=== PATIENT | male | born 1955 | race Caucasian/White ===

== ENCOUNTER 2019-03-03 12:05 | Emergency (ER) | payer MEDICARE, BC ==
[~2019-03-03] VITALS: Ht 177.8 cm; Wt 84.1 kg
[~2019-03-03 12:05] MED LIST: ALLERGY RELIEF10 M1 PO; CARDURA4 MG PO; CENTRUM SILVER1 TA1 PO; CHLORTAB-44 MG PO; CITALOPRAM20 MG PO; CRESTOR; CYMBALTA60 M1 PO; DICLOFENAC; DIOVAN HCT 12.51 TAB PO; DIOVAN/HCT 12.51 TA1 PO; DOXAZOCIN; FLOMAX0.4 MG PO; INDOCIN25 MG PO; LEVAQUIN 750MG750 M1 PO; LORATADINE10 MG PO; LORTAB 5/500 501 TAB PO; NIZORAL200 MG PO; NORCO 325 MG-51 TAB PO; PROVENTIL0.09 MG/A1 IH; SAVELLA12.5 MG PO; TRAMADOL; UNABLE; VOLTAREN-XR100 MG PO; XANAX0.25 MG PO; ZOCOR 80MG80 MG PO
[2019-03-03 12:09] VITALS: BP 138/75; TEMP 96.8
[2019-03-03] MEDS ORDERED: FLONASEALLERGY NS (12:32)
[2019-03-03] MEDS ORDERED: MONODOX100 PO ×2 (12:32→12:47)
[2019-03-03 12:54] VITALS: PULSE 62
== END 2019-03-03 12:56 | disposition home or self-care (01) ==
LOC: COL.ER 12:05
DX: J01.90 Acute sinusitis, unspecified (principal); I10 Essential (primary) hypertension; E78.5 Hyperlipidemia, unspecified; F41.9 Anxiety disorder, unspecified; F17.210 Nicotine dependence, cigarettes, uncomplicated; M79.7 Fibromyalgia

== ENCOUNTER 2019-08-04 04:32 | Inpatient (IN) | payer MEDICARE, BC ==
[~2019-08-04] VITALS: Ht 177.8 cm; Wt 78.8 kg
[~2019-08-04 04:32] MED LIST changes: +FLONASEALLERGY NS; +MONODOX100 PO
[2019-08-04 05:12] LABS: BASO # 0.1 (0.0-0.2); BASO % 0.4 % (0.0-2.0); EOS % 0.2 % (0-4.0); GRAN # 10.1 (1.4-6.5); GRAN % 81.3 % (42.2-75.2); HEMATOCRIT 39.7 % (42.0-52.0); HEMOGLOBIN 13.1 g/dl (13.5-18.0); LYMPH # 1.4 (1.2-3.4); MEAN CELL VOLUME 86 fl (80.0-100.0); MEAN CORPUSCULAR HEMOGLOBIN 28 pg (27.0-31.0); MEAN CORPUSCULAR HGB CONC 33 g/dl (33.0-37.0); MEAN PLATELET VOLUME 9.9 fl (7.4-10.4); MONO # 0.8 (0.1-0.6); MONO % 6.7 % (1.7-9.3); PLATELET COUNT 594 K/mm3 (130-400); RED BLOOD COUNT 4.64 M/mm3 (4.20-5.60); REDCELL DISTRIBUTION WIDTH-CV 13.5 % (11.5-14.5)
[2019-08-04 05:20] LABS: ALBUMIN 3.9 gm/dL (3.5-5.0); BILIRUBIN,TOTAL 0.4 mg/dL (0.0-1.0); CREATININE, serum 1.61 (0.66-1.25); POTASSIUM 4.5 mmol/L (3.4-5.0); TOTAL PROTEIN 7.7 gm/dL (6.4-8.2)
[2019-08-04 06:06] LABS: TROPONIN-I < 0.012 ng/mL (0.000-0.035)
[2019-08-04 07:43] LABS: PERITONEAL -POLYMORPHONUCLEAR 14.2 % (0-25); PERITONEAL FLUID RBC 2000 /mm3 (0-0)
[2019-08-04 09:31] VITALS: BP 130/76; PULSE 74; TEMP 97.6
[2019-08-04] MEDS ORDERED: FLOMAX 0.40.4 MG/CAP PO (10:38)
[2019-08-04] MEDS ORDERED: PRINIVIL20 MG PO (10:39)
[2019-08-04] MEDS ORDERED: CLARITIN 1010 MG/TAB PO (10:39)
[2019-08-04] MEDS ORDERED: XANAX 1MG1 MG PO (10:41)
[2019-08-04] MEDS ORDERED: ZANAFLEX2 MG PO (10:43)
[2019-08-04] MEDS ORDERED: LIPITOR20 MG PO (10:43)
[2019-08-04] MEDS ORDERED: PAXIL 20MG20 MG PO (10:45)
[2019-08-04] MEDS ORDERED: ULTRAM 50MG TAB50 MG PO (10:47)
[2019-08-04] MEDS ORDERED: FLONASEALLERGY NS (10:47)
[2019-08-04] MEDS ORDERED: DIFLUCAN150 MG PO (10:49)
[2019-08-04 11:26] VITALS: BP 112/78; PULSE 73; TEMP 98.1
[2019-08-04 11:30] VITALS: BP 112/78; PULSE 73; TEMP 98.1
[2019-08-04 12:39] LABS: MUCOUS Present /lpf; PH 5 (5-8); SQUAMOUS EPITHELIAL None Seen /hpf; URINE APPEARANCE Clear; URINE BACTERIA None Seen /hpf; URINE BILIRUBIN Negative (NEGATIVE); URINE BLOOD Negative (NEGATIVE); URINE COLOR Yellow; URINE GLUCOSE 1+ (NEGATIVE); URINE KETONE Trace (NEGATIVE); URINE LEUKOCYTE ESTERASE Negative (NEGATIVE); URINE NITRATE Negative (NEGATIVE); URINE PROTEIN(semi-quant) Negative (NEGATIVE); URINE UROBILINOGEN Negative (NEGATIVE); URINE WBC 0-2 /hpf
[2019-08-04 14:44] LABS: COLLECTION METHOD CLEAN CATCH
--- NOTE | 2019-08-04 15:01 | NUR ---
SW met with the patient to discuss a disharge plan. The patient lives with his dog in [place]. Patient states he moved back here June 06. The patient denies use of DME and reports he has not been strong enough to shower the past two days. The patient's PCP is Dr. Harry Che from [facility] and patient receives medications from [facility]. The patient does has advanced directives in the EMR in form of a declaration. The patient was interested in a DPOA-HC. SW provided the form, patient's nurse and SW witnessed. A copy was placed in the chart and the original and copies were given to the patient. The patient plans to return home upon discharge. There are no additional needs at this time.
[2019-08-04 16:01] LABS: IRON,SERUM 36 ug/dL (35-150)
[2019-08-04 16:10] LABS: TOTAL IRON BINDING CAPACITY 247 ug/dL (261-462)
[2019-08-04 16:27] VITALS: BP 128/93; PULSE 89; TEMP 97.8
[2019-08-04 20:00] VITALS: BP 135/83; PULSE 88; TEMP 98
[2019-08-04 22:34] LABS: HEPATITIS B CORE AB,TOTAL Negative (()); HEPATITIS B SURFACE ANTIBODY <2.0 (()); HEPATITIS B SURFACE ANTIGEN Negative (Negative); HEPATITIS C VIRUS ANTIBODY Negative (Negative)
[2019-08-04 23:29] VITALS: BP 117/79; PULSE 84; TEMP 98
--- NOTE | 2019-08-05 02:47 | NUR ---
PATIENT DOING WELL THROUGHOUT THE NIGHT. WAS HAVING MODERATE PAIN ALL NIGHT. PRN ULTRAM CHANGED TO Q6 HOURS PER HAROON TRISTAN. PAIN IS LOCATED TO BACK AND HEAD. TOOK PRN XANAX BEFORE BED. PATIENT WAS HAVING DIFFICULTY SLEEPING AND WAS UNCOMFORTABLE IN THE BED. UP TO CHAIR. PATIENT TOOK INDEPENDENT SHOWER WITH SETUP BY ENGLISH FACULTY MEMBER. AGUILAR OUTPUT IS LOW. ABD IS DISTENDED AND FIRM. INT TO L HAND IS PATENT AND FLUSHES EASILY. SEE ASSESSMENT. NO FURTHER NEEDS AT THIS TIME. WILL CONTINUE TO MONITOR.
[2019-08-05 03:33] VITALS: BP 98/59; PULSE 85; TEMP 97.8
[2019-08-05 06:17] LABS: BASO # 0.1 (0.0-0.2); BASO % 0.6 % (0.0-2.0); EOS # 0.1 (0.0-0.7); EOS % 0.6 % (0-4.0); GRAN # 8.1 (1.4-6.5); HEMOGLOBIN 11.2 g/dl (13.5-18.0); LYMPH # 1.6 (1.2-3.4); LYMPH % 15.2 % (20.0-51.0); MEAN CELL VOLUME 86 fl (80.0-100.0); MEAN CORPUSCULAR HEMOGLOBIN 28 pg (27.0-31.0); MEAN CORPUSCULAR HGB CONC 33 g/dl (33.0-37.0); MONO # 0.9 (0.1-0.6); MONO % 8.3 % (1.7-9.3); RED BLOOD COUNT 3.98 M/mm3 (4.20-5.60); REDCELL DISTRIBUTION WIDTH-CV 13.5 % (11.5-14.5)
[2019-08-05 06:21] LABS: HEMATOCRIT 34.3 % (42.0-52.0)
[2019-08-05 06:22] LABS: PLATELET COUNT 461 K/mm3 (130-400)
[2019-08-05 06:39] LABS: ALBUMIN 3.3 gm/dL (3.5-5.0); BILIRUBIN,TOTAL 0.3 mg/dL (0.0-1.0); CALCIUM 9.1 mg/dL (8.4-10.2); CREATININE, serum 1.8 (0.66-1.25); POTASSIUM 4.9 mmol/L (3.4-5.0); TOTAL PROTEIN 6.6 gm/dL (6.4-8.2)
[2019-08-05 08:17] VITALS: BP 128/85; PULSE 79; TEMP 97.5
--- NOTE | 2019-08-05 08:26 | NUR ---
Assessment completed, alert/oriented, vital signs stable, patient reports continue severe pain in his abd/back/ and cardenas cath related discomfort, he has requested his Ultram and I have given this, abdomen is rounded and firm, abd US roxanna this morning, cardenas in place and patent/ creat up slighlty today at 1.8, heart RRR/distal pulses are palpable, lungs CTA/ no resp.difficulty noted, up in chair at this time, a.m meds given and breakfast is arriving, denies other needs
[2019-08-05 11:46] VITALS: BP 134/74; PULSE 77; TEMP 97.3
[2019-08-05 11:48] LABS: INR 1.1 (0.8-3.0); PROTHROMBIN TIME 12.5 SECONDS (9.7-12.8)
--- NOTE | 2019-08-05 13:15 | NUR ---
patient is going down to radiology for US guided paracentesis
[2019-08-05 16:25] VITALS: BP 131/81; PULSE 75; TEMP 97.7
[2019-08-05 19:49] VITALS: BP 122/78; PULSE 79; TEMP 97.7
--- NOTE | 2019-08-05 20:30 | NUR ---
Shift assessment completet. Pt resting in bedside recliner, awake, a&o, cooperative c cares. Pt c/o continued abd pain, rated "6/10"; will give PRN pain/anxiety meds per pt request. Pt denies any other c/o. INT patent. Miguel to DD s complication. Pt denies needs. Call light in reach, will continue to monitor.
[2019-08-05 23:24] VITALS: BP 114/66; PULSE 74
[2019-08-06] VITALS (7 sets, daily range): BP systolic 99–120; BP diastolic 53–73; PULSE 64–88; TEMP 97.3–98.5
[2019-08-06 00:31] LABS: HEPATITIS AB (HAV) IGG INDEX 1.09 Index (<=1.00)
[2019-08-06 06:36] LABS: BASO # 0.1 (0.0-0.2); BASO % 0.8 % (0.0-2.0); EOS # 0.2 (0.0-0.7); EOS % 2.4 % (0-4.0); GRAN # 6.9 (1.4-6.5); GRAN % 69.9 % (42.2-75.2); HEMOGLOBIN 10.5 g/dl (13.5-18.0); LYMPH # 1.6 (1.2-3.4); LYMPH % 15.9 % (20.0-51.0); MEAN CELL VOLUME 86 fl (80.0-100.0); MEAN CORPUSCULAR HEMOGLOBIN 29 pg (27.0-31.0); MEAN CORPUSCULAR HGB CONC 33 g/dl (33.0-37.0); MEAN PLATELET VOLUME 10.2 fl (7.4-10.4); MONO # 1.1 (0.1-0.6); MONO % 10.7 % (1.7-9.3); PLATELET COUNT 460 K/mm3 (130-400); RED BLOOD COUNT 3.67 M/mm3 (4.20-5.60); REDCELL DISTRIBUTION WIDTH-CV 13.5 % (11.5-14.5)
[2019-08-06 07:04] LABS: HEMATOCRIT 31.5 % (42.0-52.0)
[2019-08-06 07:08] LABS: ALBUMIN 3.2 gm/dL (3.5-5.0); BILIRUBIN,TOTAL 0.3 mg/dL (0.0-1.0); CALCIUM 8.9 mg/dL (8.4-10.2); CREATININE, serum 1.51 (0.66-1.25); POTASSIUM 4.4 mmol/L (3.4-5.0)
--- NOTE | 2019-08-06 08:29 | NUR ---
patient going down for EGD at this time
--- NOTE | 2019-08-06 10:01 | NUR ---
Assessment completed, alert/oriented but drowsy, patient just arrived back from his EGD, denies any pain or dsicomfort, vital signs are stable, will restart diet and allow PO intake, heart RRR, lungs CTA, abdomen is softer today and he report feeling much better after having paracentesis yesterday, resting quietly, will continue to monitor
--- NOTE | 2019-08-06 12:16 | NUR ---
First visit from the retail worker. Patient wanted to see a tin container straightener. Forming Process Line Worker called tin container straightener and set up appointment. No other needs right now.
--- NOTE | 2019-08-06 15:02 | NUR ---
BROWN met with the patient to discuss getting established with a PCP in [place]. The patient was in agreeance to this. BROWN provided the patient with a list of the different providers in [place]. The patient chose the [facility]. BROWN contacted Ira at the [facility] and secured the patient an appointment with Dr. Demetris Gore on 08/15 at 1000. BROWN to inform the nurse unit manager and MINNIE Barclay. No other additional needs at this time.
[2019-08-06 15:36] LABS: ANTISMOOTH MUSCLE ANTIBODY Negative (Negative)
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
--- NOTE | 2019-08-06 23:30 | NUR ---
Lying in bed with eyes open. Explains that he was able to have a small BM that was hard and says he is concerned he may be getting constipated. Patient says that in the past grape juice has helped and asks if he can get grape juice. Patient then begins to explain concerns he has with his health and getting better with his liver the way it is right now. Encouraged patient to discuss these concerns with the provider when they come in tomorrow to see him so they are aware and can make a determination on discharge. Patient discusses some incidents in his past that have occurred that he is sorry for and hopes that he can be forgiven by God for them. Patient also requests refill on water and also a diet Coke.
[2019-08-07] VITALS (7 sets, daily range): BP systolic 106–148; BP diastolic 66–80; PULSE 77–98; TEMP 97.4–98.5
--- NOTE | 2019-08-07 | NUR ---
Provided patient with water and diet coke. Patient says that he would like the providers to know that due to emotional issues that he had in the past and also pain that was never addressed, these are reasons that he turned to alcohol and drank the way he drank. Patient discusses concerns with care he received from providers in the past along with hospitalizations. Patient explains that he has always had a lot of depression and anxiety since his brother was killed when he was 12. Asked if he ever went to counseling for this and he said when the incident initially happened his family rona him to be quiet and it was never discussed. Received counseling in his 30's but never went back. Encouraged patient to reseek care with a counselor. Patient becomes a little emotional and explains that he feels like everyone hates him but they do not understand what he has been through to get to the position that he is in. Explain to he patient that is sounds like he has gone through a tough time and it would be very beneficial to him to seek care with a counselor just to be able to gt these feelings out on a routine basis and they can help him to come up with coping mechanisms. Patient verbalizes understanding and denies further needs at this time.
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
[2019-08-07 01:24] LABS: CERULOPLASMIN 33 mg/dL (18-36)
--- NOTE | 2019-08-07 05:49 | NUR ---
Patient up in room performing oral hygiene and shaving. Denies pain or concerns. Says that he feels better that he was able to vent through the night to someone. Patient denies further needs at this time.
[2019-08-07 06:45] LABS: BASO # 0.1 (0.0-0.2); BASO % 0.9 % (0.0-2.0); EOS # 0.2 (0.0-0.7); GRAN # 7.2 (1.4-6.5); GRAN % 61.8 % (42.2-75.2); HEMOGLOBIN 11.6 g/dl (13.5-18.0); LYMPH # 2.8 (1.2-3.4); MEAN CELL VOLUME 86 fl (80.0-100.0); MEAN CORPUSCULAR HEMOGLOBIN 28 pg (27.0-31.0); MEAN CORPUSCULAR HGB CONC 33 g/dl (33.0-37.0); MEAN PLATELET VOLUME 10.4 fl (7.4-10.4); MONO # 1.3 (0.1-0.6); PLATELET COUNT 505 K/mm3 (130-400); RED BLOOD COUNT 4.08 M/mm3 (4.20-5.60); REDCELL DISTRIBUTION WIDTH-CV 13.5 % (11.5-14.5)
[2019-08-07 06:53] LABS: HEMATOCRIT 35.2 % (42.0-52.0)
[2019-08-07 07:02] LABS: CALCIUM 9.2 mg/dL (8.4-10.2); CREATININE, serum 1.82 (0.66-1.25)
--- NOTE | 2019-08-07 09:59 | NUR ---
BROWN attended clinical rounds. The patient is to tentatively discharge back home later today, 08/07. SW presented and explained the IM form the patient. The patient verbalized understanding, signed, and he declined a copy. No additional needs at this time.
--- NOTE | 2019-08-07 11:08 | NUR ---
Pt awake and alert upon entry, very talkative, shift assessment complete, left Pt call light in reach, bed in lowest position.
[2019-08-07 11:22] LABS: ALPHA 1 ANTITRYPSIN TOTAL 272.2 mg/dL (())
--- NOTE | 2019-08-07 14:13 | NUR ---
Primary nurse was assisted with [id number] patient care by [employer] [facility] Va Boyd and [employer] instructor Hemalatha Eden RN-.
--- NOTE | 2019-08-07 19:30 | NUR ---
Pt resting in room today, expresses desire to have Nicholson catheter removed, VS have remained stable.
--- NOTE | 2019-08-07 19:31 | NUR ---
Report given to YECENIA Mahoney.
--- NOTE | 2019-08-07 21:35 | NUR ---
Lying in bed with eyes open. Patient explains they wanted to send him home today but he is not comfortable with going home with the catheter. Explains that today he was shown how to clean the catheter but is concerned with emptying and carrying around a large bag because he has to leave his house to do laundry. Explain to the patient that we do have leg bags available that we would be able to show him how to use this way it can be worn under his clothing. Patient says that he is too concerned with how often he would need to check the leg bag. Explain that he can discuss these concerns with the provider further before a decision is made and explain that if he is discharged the staff will make sure that he knows how to care for his catheter. Patient says that he is feeling better today and overall has had a good day. Denies pain or any further concerns at this time.
--- NOTE | 2019-08-07 23:41 | NUR ---
Lying in bed with eyes open. Denies pain or any concerns at this time. Will try to get some sleep at this time.
[2019-08-08 03:43] VITALS: BP 117/72; PULSE 77; TEMP 97.9
--- NOTE | 2019-08-08 03:52 | NUR ---
Lying in bed with eyes open. Patient says that he is feeling good. Has some abd discomfort because he feels a little constipated. Will try to drink more water to see if that will help. Denies further needs or concerns at this time.
--- NOTE | 2019-08-08 06:33 | NUR ---
Sitting up in chair. Explains that he feels good but is concerned he may be getting constipated. Patient says that he does not want medication for constipation, he knows that he will eventually go. Denies further needs at this time.
[2019-08-08 07:59] VITALS: BP 130/89; PULSE 81; TEMP 97.4
[2019-08-08 08:36] LABS: BASO # 0.1 (0.0-0.2); BASO % 0.8 % (0.0-2.0); EOS # 0.3 (0.0-0.7); EOS % 2.7 % (0-4.0); GRAN # 7.7 (1.4-6.5); GRAN % 72.6 % (42.2-75.2); HEMOGLOBIN 11.5 g/dl (13.5-18.0); LYMPH # 1.5 (1.2-3.4); MEAN CELL VOLUME 87 fl (80.0-100.0); MEAN CORPUSCULAR HEMOGLOBIN 28 pg (27.0-31.0); MEAN CORPUSCULAR HGB CONC 33 g/dl (33.0-37.0); MONO % 9.5 % (1.7-9.3); PLATELET COUNT 512 K/mm3 (130-400); RED BLOOD COUNT 4.07 M/mm3 (4.20-5.60); REDCELL DISTRIBUTION WIDTH-CV 13.4 % (11.5-14.5)
[2019-08-08 08:37] LABS: HEMATOCRIT 35.2 % (42.0-52.0)
[2019-08-08 09:02] LABS: ALBUMIN 3.7 gm/dL (3.5-5.0); BILIRUBIN,TOTAL 0.3 mg/dL (0.0-1.0); CREATININE, serum 1.66 (0.66-1.25); POTASSIUM 4.3 mmol/L (3.4-5.0); TOTAL PROTEIN 7.1 gm/dL (6.4-8.2)
[2019-08-08] MEDS ORDERED: PROTONIX 40MG T40 MG PO (09:17)
[2019-08-08] MEDS ORDERED: LASIX 20MG TABL20 MG PO (09:18)
[2019-08-08] MEDS ORDERED: ALDACTONE50 MG PO (09:18)
[2019-08-08] MEDS ORDERED: NICODERM C21 MG/PATC TD (09:43)
--- NOTE | 2019-08-08 11:00 | NUR ---
Pt assessment completed and charted. Pt sitting in recliner at bedside. Pt is A&O, scattered conversation, very chatty. Denies pain, chest pain, dizziness, SOB, N/V. States he has some constipation but refuses medication at this time. LH INT IV flushes w. no complications. pt has bandaid to right side abdomen, CDI. Nicholson catheter in place, draining clear yellow urine, catheter care performed. No other concerns voiced at this time.
[2019-08-08 11:43] VITALS: BP 152/82; PULSE 77; TEMP 97.5
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
--- NOTE | 2019-08-08 16:57 | NUR ---
Pt assisted back to bed by nursing staff. Pt received 2MG Haldol per order in DEC. Pt out of bed walking down dia. Nursing staff intervened, assisted patient to WC and back to room. Pt doesn't respond to questions. Pt has Brokoe valente aide. Pt attempted to get out of bed, walk halls. Pt blank stares, doesn't respond to questions, then body stiffens up. Pt finally assisted to WC and back to bed. magdaleno Cox and this nurse have remained in room w/ patient in bed. Pt attempting to remove IV. Coban and christina wrap placed around IV site. Pt will sit up in bed, fidget with clothing and buttons on bed and then lay back down. Pt doesn't talk or respond to questions.
--- NOTE | 2019-08-08 17:18 | NUR ---
This nurse and darbyeBrooke have remained at patient bedside. Pt now using phone talking to family member. Pt stating "I'm not sure what is going on here." Pt talking in full, clear sentences. Pt stating to family member on phone that he "doesn't understand why he can't leave, it's confusing". "it is trickery" pt reports on phone. Pt conversation becoming scattered, repeating the word "trickery" and "i love you" to family member. Pt doesn't respond to nursing staff questions.
--- NOTE | 2019-08-08 17:35 | NUR ---
Pt awake in bed, alert, talking in full clear sentences to staff. Requesting to talk w/ physician and wanting to know what happened and if he "blacked out". Sade contacted, will visit with patient.
--- NOTE | 2019-08-08 18:20 | NUR ---
Pt seen by Sade and to remain on Medical floor. Will not transfer to ICU. Pt more alert, denies remembering what happened during event this afternoon. Pt VSS. New IV started by YECENIA Macario, 22G to the [facility].
--- NOTE | 2019-08-08 18:55 | NUR ---
Pt moved to room 355 for closer monitoring by nursing station. Pt appears to be doing ok at this time. Denies needs at this time. Sitting in bed eating dinner, tolerating well.
[2019-08-08 20:02] VITALS: BP 105/70; PULSE 83; TEMP 97.6
--- NOTE | 2019-08-08 20:30 | NUR ---
Pt is laying in bed in a catatonic state. When spoken to pt does not look at the person speaking, he did become emotional and was weepy eyed. Vital signs are WNL. Assessment completed, no abnormalities. Bed alarm on, phone and call light within reach. No further concerns at this time.
[2019-08-08 23:33] VITALS: BP 102/67; PULSE 81; TEMP 97.5
--- NOTE | 2019-08-09 01:03 | NUR ---
Pt just woke up and wanted to talk. Pt began to talk about his family life as a child. Appeared to have some repressed memories regarding his brother who on his parents anniversary when the pt was 12. Pt stated "I want to apologize for my behavior, it was because I was scared and confused." Pt is very emotional and said that he was sorry for not answering, he just didn't know what to say because of the confusion. Pt is grateful for the kindness and compassion even with his behavior. I informed him that someone will be coming by tomorrow to talk with him and give him the opportunity to talk as well, Pt is receptive. Pt asked for pain medication, but is unable to describe the pain. Administered medication from 2100 at this time as well. Pt laying in bed and ready to sleep. Call light and phone within reach, bed alarm on. No further concern at this time.
[2019-08-09 03:46] VITALS: BP 110/69; PULSE 78; TEMP 98.1
[2019-08-09 07:32] LABS: BASO # 0.1 (0.0-0.2); BASO % 0.6 % (0.0-2.0); EOS # 0.2 (0.0-0.7); EOS % 1.7 % (0-4.0); GRAN # 7.1 (1.4-6.5); HEMOGLOBIN 10.8 g/dl (13.5-18.0); LYMPH # 2.1 (1.2-3.4); LYMPH % 19.6 % (20.0-51.0); MEAN CELL VOLUME 84 fl (80.0-100.0); MEAN CORPUSCULAR HEMOGLOBIN 28 pg (27.0-31.0); MEAN CORPUSCULAR HGB CONC 33 g/dl (33.0-37.0); MEAN PLATELET VOLUME 9.8 fl (7.4-10.4); MONO % 9.9 % (1.7-9.3); PLATELET COUNT 509 K/mm3 (130-400); RED BLOOD COUNT 3.86 M/mm3 (4.20-5.60); REDCELL DISTRIBUTION WIDTH-CV 13.3 % (11.5-14.5)
[2019-08-09 07:33] LABS: HEMATOCRIT 32.4 % (42.0-52.0)
--- NOTE | 2019-08-09 07:59 | NUR ---
Report given to YECENIA Macario. Pt handoff complete. Pt reports anxiety of which some is regarding acquiring a cashiers check to pay his rent. Pt is ready and accepting of talking with whomever is coming for the psych consult today. No further conerns at this time.
[2019-08-09 08:00] LABS: CALCIUM 9.1 mg/dL (8.4-10.2); CREATININE, serum 1.48 (0.66-1.25); POTASSIUM 4.5 mmol/L (3.4-5.0)
[2019-08-09 08:16] VITALS: BP 116/73; PULSE 72; TEMP 97.7
[2019-08-09] MEDS ORDERED: PAXIL40 MG PO (10:53)
[2019-08-09] MEDS ORDERED: RISPERDAL 1M1 MG/TAB PO (10:53)
[2019-08-09 11:55] VITALS: PULSE 79; TEMP 97.7
[2019-08-09] MEDS ORDERED: ROXICODONE 55 MG/TAB PO (12:04)
--- NOTE | 2019-08-09 12:07 | NUR ---
BROWN met with the patient to review discharge plan and to discuss home health services. Dr. Abraham, psychiatrist, met with the patient today and recommend follow up at [place]. The patient reports that he feels safe and comfortable returning back home and would be interested in home health. BROWN provided the patient with [employer]'s list of home health agencies that serve [place]. The patient chose [facility]. BROWN contacted and faxed a referral to [facility]. BROWN awaiting to here back from the it systems administrator. The patient is to tentatively discharge tomorrow, 08/10. BROWN presented and explained the IM form to the patient. The patient verbalized understanding, signed, and he was provided a copy. BROWN also provided the patient with meals on wheels phone number and a list of [facility]. BROWN to continue to follow.
--- NOTE | 2019-08-09 13:54 | NUR ---
Marii, at [facility], reports that they can accept the patient and they they can start services on Sunday. SW to inform the patient and will continue to follow.
[2019-08-09 17:44] VITALS: BP 127/98; PULSE 93; TEMP 97.5
[2019-08-09 19:21] VITALS: BP 106/69; PULSE 98; TEMP 98.2
--- NOTE | 2019-08-09 21:00 | NUR ---
Pt requested to take a shower. magdaleno Eckert to wrap up the IV site. Will check on pt periodically while in shower.
[2019-08-09 23:29] VITALS: BP 112/68; PULSE 88; TEMP 97.6
[2019-08-10 03:36] VITALS: BP 111/74; PULSE 85; TEMP 98.1
--- NOTE | 2019-08-10 04:00 | NUR ---
Pt laying in bed sleeping. No concerns at this time.
--- NOTE | 2019-08-10 07:15 | NUR ---
Report given to YECENIA Ladd. Pt anticipates discharge today. Remained through the night to observe medication changes. No concerns. Pt slept well throughout the night. No further concerns at this time.
[2019-08-10 07:50] VITALS: BP 124/83; PULSE 84; TEMP 97.6
[2019-08-10 09:01] LABS: BASO # 0.1 (0.0-0.2); BASO % 0.8 % (0.0-2.0); EOS # 0.2 (0.0-0.7); EOS % 1.5 % (0-4.0); GRAN # 8.9 (1.4-6.5); GRAN % 71.3 % (42.2-75.2); HEMATOCRIT 37.4 % (42.0-52.0); HEMOGLOBIN 12.6 g/dl (13.5-18.0); LYMPH # 2.1 (1.2-3.4); LYMPH % 16.4 % (20.0-51.0); MEAN CELL VOLUME 84 fl (80.0-100.0); MEAN CORPUSCULAR HEMOGLOBIN 28 pg (27.0-31.0); MEAN CORPUSCULAR HGB CONC 34 g/dl (33.0-37.0); MEAN PLATELET VOLUME 9.9 fl (7.4-10.4); MONO # 1.2 (0.1-0.6); MONO % 9.5 % (1.7-9.3); PLATELET COUNT 578 K/mm3 (130-400); RED BLOOD COUNT 4.45 M/mm3 (4.20-5.60); REDCELL DISTRIBUTION WIDTH-CV 13.3 % (11.5-14.5)
[2019-08-10 09:12] LABS: ALBUMIN 3.8 gm/dL (3.5-5.0); BILIRUBIN,TOTAL 0.4 mg/dL (0.0-1.0); CALCIUM 9.6 mg/dL (8.4-10.2); CREATININE, serum 1.79 (0.66-1.25); POTASSIUM 4.7 mmol/L (3.4-5.0); TOTAL PROTEIN 7.4 gm/dL (6.4-8.2)
--- NOTE | 2019-08-10 09:40 | NUR ---
Patient has been independent in room. Denies the need for pain medication, concerns for constipation with roxicodone. He is hopeful for discharge.
[2019-08-10 11:21] VITALS: BP 121/76; PULSE 97; TEMP 97.6
--- NOTE | 2019-08-10 11:24 | NUR ---
general scrap worker faxed discharge orders including facesheet, orders, medications, and physician [id number] certification to [facility] at [phone].
[2019-08-10] MEDS ORDERED: ALDACTONE 25MG25 M1 PO (12:04)
--- NOTE | 2019-08-10 16:00 | NUR ---
Patient finished lunch at 1430. Patient was ready for discharge paperwork. Extensive discharge paperwork provided. Patient started feeling overwhelmed & anxious with discharge & even started getting aggitated. I attempted to give leg bag teaching, but patient had concerns, so we kept cardenas to large bag & reviewed care for tonight & tmrw am prior to urology appt at 0930. Tried to make this teaching as easy as possible for patient. I then reiwewed home med list, last dose given, medications that were stopped, new medications started & dose changed. Patient again having concerns, I provided medication list with colored coded highlighting for am medication, pm medications, & prns. Patient to scrap picker new scripts at [email or web address]. Once again tried to make this education as easy to understand as possible for patient. all follow up appts reviewed with a monthly calander with phone numbers & addresses. Patient again feeling overwhelmed. At this point I called Elan Mirza about concerns & safety. She saw patient & provded comfort. Called Dr Osman she reports patient not a fit for inpatient geripsych. wire rope fabrication supervisor involved & assisted with ear drops that were ordered-patient reports they really really helped & he was feeling ready for discharge & house supervisoer walked him out. Patient son Sushil was updated on patient concerns & entire plan of care including appts, meds, cardenas. Son report he will check in on his father this evening & AM. Social work also called & they assured me home health will see patient in & assist with cares
[2019-08-10 17:09] VITALS: BP 119/66; PULSE 80; TEMP 97.7
== END 2019-08-10 16:00 | disposition home health service (06) | DRG 432 ==
LOC: COL.ER 04:32 → MEDICAL 07:28
PROVIDERS: Emergency Medicine; Internal Medicine Gastroenterology; Physician Assistant; Student in an Organized Health Care Education/Training Program; ADMIT Internal Medicine
PROC: 0W9G3ZZ Drainage of Peritoneal Cavity, Percutaneous Approach (ICD-10-PCS; principal; 2019-08-04)
PROC: 0W9G3ZZ Drainage of Peritoneal Cavity, Percutaneous Approach (ICD-10-PCS; 2019-08-05)
PROC: 0DB68ZX Excision of Stomach, Via Natural or Artificial Opening Endoscopic, Diagnostic (ICD-10-PCS; 2019-08-06)
DX: K74.60 Unspecified cirrhosis of liver (principal); E43 Unspecified severe protein-calorie malnutrition; R18.8 Other ascites; K76.6 Portal hypertension; E87.2 Acidosis; N17.9 Acute kidney failure, unspecified; F20.2 Catatonic schizophrenia; F33.1 Major depressive disorder, recurrent, moderate; E87.1 Hypo-osmolality and hyponatremia; F17.210 Nicotine dependence, cigarettes, uncomplicated; N40.1 Benign prostatic hyperplasia with lower urinary tract symptoms; R33.8 Other retention of urine; G89.29 Other chronic pain; I71.4 Abdominal aortic aneurysm, without rupture; D47.3 Essential (hemorrhagic) thrombocythemia; K21.0 Gastro-esophageal reflux disease with esophagitis; K29.30 Chronic superficial gastritis without bleeding; L40.9 Psoriasis, unspecified; I12.9 Hypertensive chronic kidney disease with stage 1 through stage 4 chronic kidney disease, or unspecified chronic kidney disease; N18.9 Chronic kidney disease, unspecified; E78.5 Hyperlipidemia, unspecified; M79.7 Fibromyalgia; B35.1 Tinea unguium; M19.90 Unspecified osteoarthritis, unspecified site; J44.9 Chronic obstructive pulmonary disease, unspecified; D72.829 Elevated white blood cell count, unspecified; F41.1 Generalized anxiety disorder; Z88.0 Allergy status to penicillin; Z79.51 Long term (current) use of inhaled steroids
CPT/HCPCS: 99222-AI; 99232-AI; 99233-AI; 99239; A4216; C9113; J0696; J1630; J2405; J2704; J3010; J7030; P9047

== ENCOUNTER → 2019-08-15 | Outpatient (CLI) | payer MEDICARE, BC ==
[~2019-08-15] MED LIST changes: +ALDACTONE 25MG25 M1 PO; +ALDACTONE50 MG PO; +CLARITIN 1010 MG/TAB PO; +DIFLUCAN150 MG PO; +FLOMAX 0.40.4 MG/CAP PO; +LASIX 20MG TABL20 MG PO; +LIPITOR20 MG PO; +NICODERM C21 MG/PATC TD; +PAXIL 20MG20 MG PO; +PAXIL40 MG PO; +PRINIVIL20 MG PO; +PROTONIX 40MG T40 MG PO; +RISPERDAL 1M1 MG/TAB PO; +ROXICODONE 55 MG/TAB PO; +ULTRAM 50MG TAB50 MG PO; +XANAX 1MG1 MG PO; +ZANAFLEX2 MG PO
[2019-08-15 17:16] LABS: CALCIUM 8.9 mg/dL (8.4-10.2); CREATININE, serum 1.76 (0.66-1.25); POTASSIUM 4.3 mmol/L (3.4-5.0)
== END ==
LOC: ZCOL.LAB 16:32
PROVIDERS: Family Medicine
DX: K74.60 Unspecified cirrhosis of liver (principal)

== ENCOUNTER → 2019-09-19 | Outpatient (CLI) | payer MEDICARE, BC ==
[~2019-09-19] VITALS: Ht 177.8 cm; Wt 82.6 kg
[~2019-09-19] MED LIST changes: +XANAX 0.5MG0.5 MG PO
[2019-09-19 11:52] VITALS: BP 123/83; PULSE 83
[2019-09-19 13:10] VITALS: BP 157/96; PULSE 63
== END ==
LOC: COL.RAD 11:25
DX: R18.8 Other ascites (principal)

== ENCOUNTER 2019-10-16 09:06 | Emergency (ER) | payer MEDICARE, BC ==
[~2019-10-16] VITALS: Ht 177.8 cm; Wt 81.5 kg
[2019-10-16 09:47] LABS: BASO # 0.1 (0.0-0.2); BASO % 0.9 % (0.0-2.0); EOS # 0.2 (0.0-0.7); EOS % 2.1 % (0-4.0); GRAN # 7.1 (1.4-6.5); GRAN % 70.1 % (42.2-75.2); HEMATOCRIT 38.2 % (42.0-52.0); HEMOGLOBIN 12.4 g/dl (13.5-18.0); LYMPH # 1.9 (1.2-3.4); LYMPH % 19.1 % (20.0-51.0); MEAN CELL VOLUME 86 fl (80.0-100.0); MEAN CORPUSCULAR HEMOGLOBIN 28 pg (27.0-31.0); MEAN CORPUSCULAR HGB CONC 33 g/dl (33.0-37.0); MEAN PLATELET VOLUME 9.4 fl (7.4-10.4); MONO # 0.8 (0.1-0.6); MONO % 7.4 % (1.7-9.3); PLATELET COUNT 501 K/mm3 (130-400); RED BLOOD COUNT 4.43 M/mm3 (4.20-5.60); REDCELL DISTRIBUTION WIDTH-CV 15.1 % (11.5-14.5)
[2019-10-16 09:52] LABS: INR 0.9 (0.8-3.0); PROTHROMBIN TIME 10.8 SECONDS (9.7-12.8)
[2019-10-16 09:58] LABS: ALANINE AMINOTRANSFERASE < 6 U/L (21-72); ALBUMIN 3.8 gm/dL (3.5-5.0); ALKALINE PHOSPHATASE 101 U/L (50-136); ANION GAP 10 mmol/L (7-16); AST,SGOT 21 U/L (15-37); BILIRUBIN,TOTAL 0.4 mg/dL (0.0-1.0); BLOOD UREA NITROGEN 19 mg/dL (9-20); CARBON DIOXIDE 28 mmol/L (22-30); CHLORIDE 93 mmol/L (98-107); CREATININE, serum 1.55 (0.66-1.25); GLUCOSE 97 mg/dL (74-106); POTASSIUM 4.1 mmol/L (3.4-5.0); SODIUM 131 mmol/L (137-145); TOTAL PROTEIN 7.2 gm/dL (6.4-8.2)
[2019-10-16 15:40] VITALS: BP 130/70; PULSE 71; TEMP 97.7
== END 2019-10-16 15:40 | disposition home or self-care (01) ==
LOC: COL.ER 09:06
PROVIDERS: Emergency Medicine
DX: R18.8 Other ascites (principal); I10 Essential (primary) hypertension; E78.5 Hyperlipidemia, unspecified; J45.909 Unspecified asthma, uncomplicated; F17.210 Nicotine dependence, cigarettes, uncomplicated; Z79.51 Long term (current) use of inhaled steroids
CPT/HCPCS: J2060; P9047

== ENCOUNTER → 2020-02-25 | Outpatient (CLI) | payer MEDICARE, BC | LOC: COL.RAD 08:41 | DX: I71.4 Abdominal aortic aneurysm, without rupture (principal) ==

== ENCOUNTER → 2020-04-21 | Outpatient (CLI) | payer MEDICARE, BC ==
[2020-04-21 10:52] LABS: HEMOGLOBIN 10.7 g/dl (13.5-18.0); MEAN CELL VOLUME 79 fl (80.0-100.0); MEAN CORPUSCULAR HEMOGLOBIN 25 pg (27.0-31.0); MEAN CORPUSCULAR HGB CONC 32 g/dl (33.0-37.0); MEAN PLATELET VOLUME 9.3 fl (7.4-10.4); PLATELET COUNT 614 K/mm3 (130-400); RED BLOOD COUNT 4.28 M/mm3 (4.20-5.60); REDCELL DISTRIBUTION WIDTH-CV 17.3 % (11.5-14.5)
[2020-04-21 11:01] LABS: CALCIUM 9.7 mg/dL (8.4-10.2); CREATININE, serum 1.85 (0.66-1.25); POTASSIUM 3.5 mmol/L (3.4-5.0)
== END ==
LOC: COL.LAB 10:15
PROVIDERS: Nurse Practitioner
DX: I73.9 Peripheral vascular disease, unspecified (principal)

== ENCOUNTER → 2020-06-28 | Outpatient (CLI) | payer MEDICARE, BC | LOC: COL.RAD 09:36 | DX: I71.4 Abdominal aortic aneurysm, without rupture (principal); K74.60 Unspecified cirrhosis of liver; N26.1 Atrophy of kidney (terminal); K80.20 Calculus of gallbladder without cholecystitis without obstruction; L90.5 Scar conditions and fibrosis of skin | CPT/HCPCS: Q9967 ==

== ENCOUNTER 2020-07-16 07:49 | Day surgery (SDC) | payer MEDICARE, BC ==
[2020-07-16] VITALS (7 sets, daily range): BP systolic 94–117; BP diastolic 73–84; PULSE 63–75; TEMP 97.7–98.2
[~2020-07-16] VITALS: Ht 177.8 cm; Wt 63.5 kg
[2020-07-16] MEDS ORDERED: FERROUS SU325 MG/TAB PO (08:05)
[2020-07-16] MEDS ORDERED: ASPIRIN 81M81 MG/TA2 (08:06)
[2020-07-16] MEDS ORDERED: PLAVIX 75MG TAB75 MG PO (08:06)
[2020-07-16] MEDS ORDERED: ALDACTONE 100M100 MG PO (08:06)
[2020-07-16] MEDS ORDERED: CLARITIN 1010 MG/TAB PO (08:07)
[2020-07-16] MEDS ORDERED: LASIX 40MG TABL40 MG PO (08:07)
[2020-07-16] MEDS ORDERED: PROTONIX 40MG T40 MG PO (08:07)
--- NOTE | 2020-07-16 08:58 | NUR ---
PATIENT TRANSPORTED PER CART TO [facility] ACCOMPANIED BY GILBERTO RN. PATIENT AWAKED. PATIENT AMBULATED FROM CART TO CHAIR WITH 1 ASSIST. SLOW STEADY GAIT. MONITORS APPLIED. VSS ON ROOM AIR. VERBAL REPORT RECEIVED.
--- NOTE | 2020-07-16 09:00 | NUR ---
PATIENT TRANSPORTED PER CART TO [place] [facility] ACCOMPANIED BY ENDO STAFF. PATIENT AWAKE. PATIENT AMBULATED FROM CART TO CHAIR WITH 1 ASSIST. SLOW STEADY GAIT. PATIENT DENIES DISCOMFORT AND NAUSEA. VERBAL REPORT RECEIVED. 0905 PT GIVEN PUDDING AND DIET PEPSI. DR CEDILLO IN ROOM AND SPEAKS WITH PATIENT. QUESTIONS ANSWERED AND PATIENT VOICED UNDERSTANDING.
--- NOTE | 2020-07-16 09:05 | NUR ---
VSS ON ROOM AIR. PATIENT DENIES DISCOMFORT AND NAUSEA. PATIENT GIVEN PUDDING AND DIET PEPSI. DR CEDILLO IN ROOM AND SPEAKS WITH PATIENT.
--- NOTE | 2020-07-16 09:15 | NUR ---
VSS. PATIENT TOLERATES PUDDING AND FLUIDS WITHOUT DIFFICULTY.
--- NOTE | 2020-07-16 09:20 | NUR ---
VSS. PATIENT WATCHING TV AND DENIES C/O'S. TOLERATES FOOD AND FLUIDS WITHOUT PROBLEMS.
--- NOTE | 2020-07-16 09:35 | NUR ---
VSS. PATIENT DENIES C/O'S. IV SITE DC'D WITH CATHETER TIP INTACT. PRESSURE AND BANDAGE APPLIED. DISCHARGE INSTRUCTIONS GIVEN VERBAL. DISCHARGE PACKET GIVEN TO PATIENT. DR CEDILLO OFFICE CALLED AND FOLLOW UP APPIONTMENT MADE. CARD GIVEN TO PATIENT. QUESTIONS ANWSERED AND PATIENT VOICED UNDERSTANDING. PATIENT CHANGES INTO STREET CLOTHES. 0950 PATIENT DISCHARGED PER WHEEL CHAIR ACCOMPANIED BY ENDO STAFF TO PRIVATE VECHILE. PATIENT'S SON DRIVING.
== END 2020-07-16 09:50 | disposition home or self-care (01) ==
LOC: SDCO 07:49
DX: K22.70 Barrett's esophagus without dysplasia (principal); K21.00 Gastro-esophageal reflux disease with esophagitis, without bleeding; K44.9 Diaphragmatic hernia without obstruction or gangrene; F32.9 Major depressive disorder, single episode, unspecified; E78.5 Hyperlipidemia, unspecified; I12.9 Hypertensive chronic kidney disease with stage 1 through stage 4 chronic kidney disease, or unspecified chronic kidney disease; N18.30 Chronic kidney disease, stage 3 unspecified; M79.7 Fibromyalgia; K76.6 Portal hypertension; Z88.0 Allergy status to penicillin; J44.9 Chronic obstructive pulmonary disease, unspecified; F17.210 Nicotine dependence, cigarettes, uncomplicated; M19.90 Unspecified osteoarthritis, unspecified site; G89.29 Other chronic pain; F41.9 Anxiety disorder, unspecified; D63.1 Anemia in chronic kidney disease; Z85.828 Personal history of other malignant neoplasm of skin; F20.9 Schizophrenia, unspecified
CPT/HCPCS: J2704; J7030

== ENCOUNTER → 2020-09-06 | Outpatient (CLI) | payer MEDICARE, BC ==
[~2020-09-06] MED LIST changes: +ALDACTONE 100M100 MG PO; +ASPIRIN 81M81 MG/TA2; +FERROUS SU325 MG/TAB PO; +LASIX 40MG TABL40 MG PO; +PLAVIX 75MG TAB75 MG PO
[2020-09-06 11:05] LABS: CALCIUM 9.1 mg/dL (8.4-10.2); CREATININE, serum 1.4 (0.66-1.25)
== END ==
LOC: COL.LAB 10:22 → COL.RAD 10:22
PROVIDERS: Surgery Vascular Surgery
DX: Z01.812 Encounter for preprocedural laboratory examination (principal); I71.4 Abdominal aortic aneurysm, without rupture; K74.60 Unspecified cirrhosis of liver; J90 Pleural effusion, not elsewhere classified; J98.11 Atelectasis; I31.3 Pericardial effusion (noninflammatory); N26.1 Atrophy of kidney (terminal)
CPT/HCPCS: Q9967

== ENCOUNTER 2020-09-14 07:46 | Day surgery (SDC) | payer MEDICARE, BC ==
[2020-09-14] VITALS (13 sets, daily range): BP systolic 91–122; BP diastolic 52–83; PULSE 54–83; TEMP 98
[~2020-09-14] VITALS: Ht 177.8 cm; Wt 63.3 kg
[2020-09-14 08:47] LABS: MEAN CELL VOLUME 79 fl (80.0-100.0); MEAN CORPUSCULAR HGB CONC 30 g/dl (33.0-37.0); MEAN PLATELET VOLUME 9.8 fl (7.4-10.4); PLATELET COUNT 719 K/mm3 (130-400); RED BLOOD COUNT 4.06 M/mm3 (4.20-5.60)
[2020-09-14 08:50] LABS: INR 1.1 (0.8-3.0); PROTHROMBIN TIME 12.6 SECONDS (9.7-12.8)
[2020-09-14 08:52] LABS: PARTIAL THROMBOPLASTIN TIME 32.5 SECONDS (26.0-37.0)
[2020-09-14 08:53] LABS: HEMATOCRIT 32.1 % (42.0-52.0); HEMOGLOBIN 9.6 g/dl (13.5-18.0); MEAN CORPUSCULAR HEMOGLOBIN 24 pg (27.0-31.0)
[2020-09-14 08:58] LABS: CREATININE, serum 1.45 (0.66-1.25); POTASSIUM 3.7 mmol/L (3.4-5.0)
[2020-09-14] MEDS ORDERED: PAXIL 30MG30 MG PO (10:10)
[2020-09-14] MEDS ORDERED: RISPERDAL 1M1 MG/TAB PO (10:12)
--- NOTE | 2020-09-14 10:59 | NUR ---
Pt to procedure.
--- NOTE | 2020-09-14 11:31 | NUR ---
SEE MEREKIETH FOR ALL MEDICATION ADMINISTRATION TIMES, INTRA AND POST SEDATION ASSESSMENTS
--- NOTE | 2020-09-14 12:22 | NUR ---
Pt returned from procedure,report from Rick Diamond.
--- NOTE | 2020-09-14 16:45 | NUR ---
Discharge instructions given to pt.pt verbalizes understanding.Dressing observed clean,dry,intact, and soft to touch.INT removed,catheter tip intact.Pt escorted out via wheelchair by this nurse.
== END 2020-09-14 18:12 | disposition home or self-care (01) ==
LOC: COL.CAR 07:46
PROVIDERS: Internal Medicine Interventional Cardiology
DX: R07.9 Chest pain, unspecified (principal); I73.9 Peripheral vascular disease, unspecified; Z71.89 Other specified counseling; Z79.51 Long term (current) use of inhaled steroids; E78.5 Hyperlipidemia, unspecified; Z20.828 Contact with and (suspected) exposure to other viral communicable diseases; Z88.1 Allergy status to other antibiotic agents; Z87.891 Personal history of nicotine dependence
CPT/HCPCS: J1644; J2250; J3010; Q9967

== ENCOUNTER → 2020-10-12 | Outpatient (CLI) | payer MEDICARE, BC ==
[~2020-10-12] MED LIST changes: +PAXIL 30MG30 MG PO
== END ==
LOC: COL.RAD 10:15
DX: K74.60 Unspecified cirrhosis of liver (principal); J90 Pleural effusion, not elsewhere classified; Z95.828 Presence of other vascular implants and grafts

== ENCOUNTER 2021-03-27 00:48 | Emergency (ER) | payer MEDICARE, BC ==
[~2021-03-27] VITALS: Ht 177.8 cm; Wt 63.6 kg
[~2021-03-27 00:48] MED LIST changes: -ASPIRIN 81M81 MG/TA2; +ASPIRIN 81M81 MG/TA2 PO
[2021-03-27 00:55] VITALS: TEMP 97
[2021-03-27 02:00] VITALS: BP 142/70; PULSE 68
== END 2021-03-27 01:39 | disposition home or self-care (01) ==
LOC: COL.ER 00:48
DX: S51.012A Laceration without foreign body of left elbow, initial encounter (principal); K21.9 Gastro-esophageal reflux disease without esophagitis; Z87.891 Personal history of nicotine dependence; Z79.82 Long term (current) use of aspirin; Z79.02 Long term (current) use of antithrombotics/antiplatelets; Z88.0 Allergy status to penicillin; Z79.899 Other long term (current) drug therapy; X58.XXXA Exposure to other specified factors, initial encounter

== ENCOUNTER 2021-04-14 17:25 | Inpatient (IN) | payer MEDICARE, BC ==
[~2021-04-14] VITALS: Ht 177.8 cm; Wt 64.1 kg
[2021-04-14 19:01] LABS: BASO # 0.1 (0.0-0.2); BASO % 0.9 % (0.0-2.0); EOS % 0.4 % (0-4.0); GRAN # 6.6 (1.4-6.5); LYMPH # 1.5 (1.2-3.4); LYMPH % 16.7 % (20.0-51.0); MEAN CELL VOLUME 78 fl (80.0-100.0); MEAN CORPUSCULAR HGB CONC 31 g/dl (33.0-37.0); MEAN PLATELET VOLUME 9.8 fl (7.4-10.4); MONO # 0.7 (0.1-0.6); MONO % 7.6 % (1.7-9.3); PLATELET COUNT 714 K/mm3 (130-400); RED BLOOD COUNT 3.29 M/mm3 (4.20-5.60); REDCELL DISTRIBUTION WIDTH-CV 16.1 % (11.5-14.5)
[2021-04-14 19:03] LABS: HEMATOCRIT 25.6 % (42.0-52.0); MEAN CORPUSCULAR HEMOGLOBIN 24 pg (27.0-31.0)
[2021-04-14 19:13] LABS: ALANINE AMINOTRANSFERASE 12 U/L (4-49); ALBUMIN 3.5 gm/dL (3.5-5.0); ALKALINE PHOSPHATASE 109 U/L (50-136); ANION GAP 6 mmol/L (7-16); AST,SGOT 21 U/L (15-37); BILIRUBIN,TOTAL 0.3 mg/dL (0.0-1.0); BLOOD UREA NITROGEN 20 mg/dL (9-20); C-REACTIVE PROTEIN 6.4 mg/dL (0.0-0.9); CALCIUM 8.8 mg/dL (8.4-10.2); CARBON DIOXIDE 24 mmol/L (22-30); CHLORIDE 104 mmol/L (98-107); CREATININE, serum 1.25 (0.66-1.25); GLUCOSE 137 mg/dL (74-106); SODIUM 134 mmol/L (137-145); TOTAL PROTEIN 7.2 gm/dL (6.4-8.2)
[2021-04-14 19:23] LABS: POTASSIUM 2.8 mmol/L (3.4-5.0)
[2021-04-14 19:31] LABS: TROPONIN-I < 0.012 ng/mL (0.000-0.035)
[2021-04-14 19:59] LABS: COLLECTION METHOD CLEAN CATCH
[2021-04-14 20:08] LABS: MUCOUS Present /lpf; PH 5 (5-8); SQUAMOUS EPITHELIAL None Seen /hpf; URINE APPEARANCE Hazy; URINE BACTERIA None Seen /hpf; URINE BILIRUBIN Negative (NEGATIVE); URINE BLOOD 1+ (NEGATIVE); URINE COLOR Yellow; URINE GLUCOSE Negative (NEGATIVE); URINE KETONE Negative (NEGATIVE); URINE LEUKOCYTE ESTERASE Negative (NEGATIVE); URINE NITRATE Negative (NEGATIVE); URINE PROTEIN(semi-quant) 1+ (NEGATIVE); URINE RBC 20-50 /hpf; URINE UROBILINOGEN Negative (NEGATIVE)
[2021-04-14 20:32] LABS: INR 1.1 (0.8-3.0); PROTHROMBIN TIME 11.8 SECONDS (9.7-12.8)
[2021-04-15 02:23] LABS: IRON,SERUM 14 ug/dL (35-150)
[2021-04-15 02:32] LABS: TOTAL IRON BINDING CAPACITY 300 ug/dL (261-462)
[2021-04-15 06:46] LABS: BASO # 0.1 (0.0-0.2); BASO % 0.9 % (0.0-2.0); EOS # 0.2 (0.0-0.7); EOS % 2.6 % (0-4.0); GRAN # 3.9 (1.4-6.5); GRAN % 59.8 % (42.2-75.2); LYMPH # 1.7 (1.2-3.4); LYMPH % 26.1 % (20.0-51.0); MEAN CELL VOLUME 79 fl (80.0-100.0); MEAN CORPUSCULAR HGB CONC 31 g/dl (33.0-37.0); MEAN PLATELET VOLUME 9.5 fl (7.4-10.4); MONO # 0.7 (0.1-0.6); MONO % 10.4 % (1.7-9.3); RED BLOOD COUNT 3.12 M/mm3 (4.20-5.60); REDCELL DISTRIBUTION WIDTH-CV 16.3 % (11.5-14.5); RETIC # 0.05 M/mm3 (0.02-0.16); RETIC % 1.6 % (0.5-3.52)
[2021-04-15 06:47] LABS: HEMATOCRIT 24.6 % (42.0-52.0); HEMOGLOBIN 7.6 g/dl (13.5-18.0); MEAN CORPUSCULAR HEMOGLOBIN 24 pg (27.0-31.0); PLATELET COUNT 556 K/mm3 (130-400)
[2021-04-15 07:02] LABS: ALANINE AMINOTRANSFERASE 6 U/L (4-49); ALKALINE PHOSPHATASE 96 U/L (50-136); ANION GAP 4 mmol/L (7-16); AST,SGOT 22 U/L (15-37); BILIRUBIN,TOTAL 0.4 mg/dL (0.0-1.0); BLOOD UREA NITROGEN 15 mg/dL (9-20); CALCIUM 8.5 mg/dL (8.4-10.2); CARBON DIOXIDE 26 mmol/L (22-30); CHLORIDE 104 mmol/L (98-107); CREATININE, serum 1.18 (0.66-1.25); GLUCOSE 91 mg/dL (74-106); SODIUM 134 mmol/L (137-145); TOTAL PROTEIN 6.2 gm/dL (6.4-8.2)
[2021-04-15 07:08] LABS: POTASSIUM 2.8 mmol/L (3.4-5.0)
[2021-04-15 07:17] LABS: TROPONIN-I < 0.012 ng/mL (0.000-0.035)
[2021-04-15 07:27] LABS: MAGNESIUM 1.9 mg/dL (1.6-2.3)
--- NOTE | 2021-04-15 07:49 | NUR ---
0630 REPORT RECEIVED FROM NURSE PHAM. PT NOT ON THE UNIT. 0730 PT RECEIVED FROM E.D. NO S/S OF DISTRESS NOTED. IV POTASSIUM NOTED INFUSING. 0740 PT DOES NOT HAVE TELE MONITOR ON. TECH FROM E.D. BROUGHT UP TELE BOX FOR PT AND PT WAS PLACE ON TELE. 8 UNITS OF IV POTASSIUM ORDERED FROM PT. ONE UNIT NOTED ADMINISTERED AND ANOTHER INFUSING. CONTRACT PROCESSOR CALL E.D. TO VERIFY IF PT HAD ANY OTHER UNITS OF THE POTASSIUM ADMINISTERED. CALL PLACED TO PHARMACY TO VERIFY DOSES OF POTASSIUM THAT WERE REMOVED AND ADMINISTERED TO PT.
[2021-04-15 08:00] VITALS: BP 137/84; PULSE 77; TEMP 97.6
--- NOTE | 2021-04-15 09:56 | NUR ---
Initial visit; Patient thanked Contracts Manager for looking in on him and offering comfort and prayer.
[2021-04-15 12:00] VITALS: BP 118/75; PULSE 72; TEMP 97.6
[2021-04-15 15:29] VITALS: BP 139/89; PULSE 79; TEMP 97.9
[2021-04-15 17:03] LABS: FOLATE (FOLIC ACID) 6.7 ng/mL (2.0-20.0)
[2021-04-15 19:00] LABS: PLEURAL FLUID RBC 520000 /mm3 (0-0); PLEURAL FLUID WBC 1242 /mm3
[2021-04-15 19:18] LABS: GLUCOSE,PLEURAL FLUID 51 mg/dL; TOTAL PROTEIN,PLEURAL FLUID 4.6 gm/dL
--- NOTE | 2021-04-15 19:45 | NUR ---
PT SON KANIKA AT BEDSIDE ASKING FOR UPDATES. DID ANSWER QUESTIONS BEST THIS NURSE COULD. PT DENIES NEEDS, IS ALERT AND ORIENTED X4. IVF INFUSING TO LEFT UPPER ARM WITHOUT PROBLEM. VOIDING PER URINAL. HAS BANDAID TO RT BACK FROM [place].
[2021-04-15 20:03] VITALS: BP 118/68; PULSE 75; TEMP 98.2
--- NOTE | 2021-04-15 22:00 | NUR ---
TAKES HS MEDS. DENIES NEEDS, REPORTS BEING HUNGRY AND READY FOR REAL FOOD.
[2021-04-15 23:28] VITALS: BP 115/70; PULSE 71; TEMP 97.9
[2021-04-16 03:24] VITALS: BP 113/69; PULSE 64; TEMP 97.7
--- NOTE | 2021-04-16 04:04 | NUR ---
VOIDING PER URINAL. NO COMPLAINS OFFERED.
[2021-04-16 07:03] LABS: BASO # 0.1 (0.0-0.2); BASO % 1.4 % (0.0-2.0); EOS # 0.3 (0.0-0.7); EOS % 3.8 % (0-4.0); GRAN # 4.1 (1.4-6.5); GRAN % 62.3 % (42.2-75.2); LYMPH # 1.6 (1.2-3.4); LYMPH % 24.6 % (20.0-51.0); MEAN CELL VOLUME 81 fl (80.0-100.0); MEAN CORPUSCULAR HGB CONC 31 g/dl (33.0-37.0); MEAN PLATELET VOLUME 9.8 fl (7.4-10.4); MONO # 0.5 (0.1-0.6); MONO % 7.4 % (1.7-9.3); PLATELET COUNT 577 K/mm3 (130-400); RED BLOOD COUNT 3.31 M/mm3 (4.20-5.60); REDCELL DISTRIBUTION WIDTH-CV 16.3 % (11.5-14.5)
[2021-04-16 07:21] LABS: CALCIUM 8.4 mg/dL (8.4-10.2); CREATININE, serum 1.04 (0.66-1.25); POTASSIUM 3.5 mmol/L (3.4-5.0)
[2021-04-16 07:22] LABS: HEMATOCRIT 26.7 % (42.0-52.0); HEMOGLOBIN 8.3 g/dl (13.5-18.0); MEAN CORPUSCULAR HEMOGLOBIN 25 pg (27.0-31.0)
[2021-04-16 07:29] VITALS: BP 127/79; PULSE 73; TEMP 97.6
--- NOTE | 2021-04-16 08:27 | NUR ---
PT RESTING IN BED. ASSESSMENTS COMPLETE, VSS. AM MEDS GIVEN ORDERED. PT DENIES NEEDS AT THIS TIME. IV TO ANITHA WITH FLUIDS RUNNING @75 MLS /HR.
[2021-04-16 11:44] VITALS: BP 111/65; PULSE 78; TEMP 98.2
[2021-04-16] MEDS ORDERED: FERRO-TIME325 MG PO (11:53)
[2021-04-16] MEDS ORDERED: K-TAB20 PO (12:32)
--- NOTE | 2021-04-16 12:47 | NUR ---
DISCHARGE INSTRUCTIONS REVIEWED WITH PT AND SON. QUESTIONS SOLICITED AND ANSWERED. PT LEFT PER WHEEL CHAIR WITH STAFF.
--- NOTE | 2021-04-16 16:03 | NUR ---
Plans to return home, Met with patient about care. Patient reports that his son Octavio is a support . Patient shares that his son is POA. Patient reports his PCP is Lubna Hendricks and Dr. Shah. Pref RX [facility]. Patient shares that he is able to drive and has no concerns with transportation. Edu on supports and services. NF.
== END 2021-04-16 12:49 | disposition home or self-care (01) | DRG 186 ==
LOC: COL.ER 17:25 → SURG 23:45
PROVIDERS: Internal Medicine; Internal Medicine Pulmonary Disease; Nurse Practitioner; Physician Assistant; ADMIT Internal Medicine
PROC: 0W993ZZ Drainage of Right Pleural Cavity, Percutaneous Approach (ICD-10-PCS; principal; 2021-04-15)
DX: J90 Pleural effusion, not elsewhere classified (principal); E43 Unspecified severe protein-calorie malnutrition; K56.609 Unspecified intestinal obstruction, unspecified as to partial versus complete obstruction; R18.8 Other ascites; J44.9 Chronic obstructive pulmonary disease, unspecified; K74.60 Unspecified cirrhosis of liver; N18.9 Chronic kidney disease, unspecified; R53.81 Other malaise; Z66 Do not resuscitate; D53.9 Nutritional anemia, unspecified; D47.3 Essential (hemorrhagic) thrombocythemia; E87.6 Hypokalemia; N40.0 Benign prostatic hyperplasia without lower urinary tract symptoms; I73.9 Peripheral vascular disease, unspecified; Z86.718 Personal history of other venous thrombosis and embolism; Z79.82 Long term (current) use of aspirin; Z79.01 Long term (current) use of anticoagulants; Z87.891 Personal history of nicotine dependence; Z88.0 Allergy status to penicillin; Z20.822 Contact with and (suspected) exposure to COVID-19
CPT/HCPCS: 99222-AI; 99233-AI; 99239; J3480; J7030; Q9967

== ENCOUNTER 2021-04-21 14:05 | Emergency (ER) | payer MEDICARE, BC ==
[~2021-04-21] VITALS: Ht 177.8 cm; Wt 61.4 kg
[~2021-04-21 14:05] MED LIST changes: +FERRO-TIME325 MG PO; +K-TAB20 PO
[2021-04-21 14:15] VITALS: TEMP 97.8
[2021-04-21 15:02] LABS: BASO # 0.1 (0.0-0.2); BASO % 0.9 % (0.0-2.0); EOS # 0.2 (0.0-0.7); EOS % 1.8 % (0-4.0); GRAN # 6.2 (1.4-6.5); GRAN % 66.5 % (42.2-75.2); LYMPH # 2.2 (1.2-3.4); LYMPH % 23.3 % (20.0-51.0); MEAN CELL VOLUME 81 fl (80.0-100.0); MEAN CORPUSCULAR HGB CONC 30 g/dl (33.0-37.0); MEAN PLATELET VOLUME 9.4 fl (7.4-10.4); MONO # 0.7 (0.1-0.6); MONO % 7.2 % (1.7-9.3); PLATELET COUNT 623 K/mm3 (130-400); RED BLOOD COUNT 3.64 M/mm3 (4.20-5.60); REDCELL DISTRIBUTION WIDTH-CV 16.7 % (11.5-14.5)
[2021-04-21 15:03] LABS: HEMATOCRIT 29.6 % (42.0-52.0); HEMOGLOBIN 8.8 g/dl (13.5-18.0); MEAN CORPUSCULAR HEMOGLOBIN 24 pg (27.0-31.0)
[2021-04-21 15:12] LABS: ALBUMIN 3.7 gm/dL (3.5-5.0); BILIRUBIN,TOTAL 0.3 mg/dL (0.0-1.0); CREATININE, serum 1.49 (0.66-1.25); POTASSIUM 4.4 mmol/L (3.4-5.0); TOTAL PROTEIN 7.4 gm/dL (6.4-8.2)
[2021-04-21 15:41] VITALS: BP 119/87; PULSE 72
[2021-04-22] MEDS ORDERED: PLAVIX 75MG TAB75 MG PO (08:17)
== END 2021-04-21 15:47 | disposition home or self-care (01) ==
LOC: COL.ER 14:05
PROVIDERS: Emergency Medicine
DX: R53.83 Other fatigue (principal); J90 Pleural effusion, not elsewhere classified; J44.9 Chronic obstructive pulmonary disease, unspecified; K74.60 Unspecified cirrhosis of liver; R18.8 Other ascites; N18.9 Chronic kidney disease, unspecified; Z86.718 Personal history of other venous thrombosis and embolism

== ENCOUNTER 2021-04-22 07:32 | Outpatient (CLI) | payer MEDICARE, BC ==
[~2021-04-22] VITALS: Ht 177.8 cm; Wt 61.4 kg
[2021-04-22] MEDS ORDERED: PLAVIX 75MG TAB75 MG PO (08:17)
[2021-04-22 08:29] VITALS: BP 126/79; PULSE 77; TEMP 97.9
[2021-04-22 10:35] VITALS: BP 113/68; PULSE 69; TEMP 97.7
--- NOTE | 2021-04-22 10:35 | NUR ---
Patient arrives to [facility] for post-op recovery. He is sitting up in bed, alert and oriented. He denies pain or needs at this time. He has a bandaid covering the operative site, which is clean/dry/intact. VSS on room air. He is offered and receives a soda and a muffin.
[2021-04-22 10:45] VITALS: BP 143/79; PULSE 67
--- NOTE | 2021-04-22 10:45 | NUR ---
Patient is tolerating PO diet. Denies pain or needs.
[2021-04-22 11:00] VITALS: BP 132/82; PULSE 65
[2021-04-22 11:15] VITALS: BP 126/82; PULSE 67
--- NOTE | 2021-04-22 11:35 | NUR ---
Patient's chest xray has resulted and the reading was called to Dr. Hampton, who states the patient may discharge home. Discharge instructions are discussed. The patient denies questions and verbalizes understanding. He changes to his clothing independently. He is escorted to the exit via wheelchair by staff. He is driven home by his son, Sushil, in a private vehicle. He is discharged to home at 1135.
[2021-04-23 01:36] VITALS: BP 133/84; PULSE 73
== END 2021-04-22 11:35 | disposition home or self-care (01) ==
LOC: SDCO 07:32
DX: J90 Pleural effusion, not elsewhere classified (principal); K74.60 Unspecified cirrhosis of liver; R06.02 Shortness of breath; E87.6 Hypokalemia; R18.8 Other ascites; J44.9 Chronic obstructive pulmonary disease, unspecified; D47.3 Essential (hemorrhagic) thrombocythemia; K21.9 Gastro-esophageal reflux disease without esophagitis; M19.90 Unspecified osteoarthritis, unspecified site; G89.29 Other chronic pain; M54.9 Dorsalgia, unspecified; N18.30 Chronic kidney disease, stage 3 unspecified; F32.9 Major depressive disorder, single episode, unspecified; F41.9 Anxiety disorder, unspecified; Z79.82 Long term (current) use of aspirin; Z79.02 Long term (current) use of antithrombotics/antiplatelets; Z87.891 Personal history of nicotine dependence; Z80.8 Family history of malignant neoplasm of other organs or systems
CPT/HCPCS: 19804

== ENCOUNTER 2021-04-28 14:11 | Inpatient (IN) | payer MEDICARE, BC ==
[~2021-04-28] VITALS: Ht 177.8 cm; Wt 58.1 kg
[2021-05-04] VITALS (10 sets, daily range): BP systolic 105–121; BP diastolic 61–80; PULSE 57–91; TEMP 97.6–99
[2021-05-04] MEDS ORDERED: K-TAB20 PO (11:23)
[2021-05-04] MEDS ORDERED: FERROUS SU325 MG/TAB PO (11:23)
--- NOTE | 2021-05-04 12:00 | NUR ---
The patient was taken over via cart to the recovery room to have a nerve block placed prior to OR. The patient's belongings were taken over with him and will be transferred up to the 3rd floor post operatively to his assigned room.
--- NOTE | 2021-05-04 14:40 | NUR ---
PATIENT ALERT AND ORIENTED X4. SON AT BEDSIDE. PATIENT HAS CHEST TUBE TO RIGHT SIDE ON CONTINUOUS SUCTION. VITAL SIGNS STABLE. [place], AQUATIC PHYSIOTHERAPIST WAS IN TO ASSESS PATIENT. YECENIA SIN CALLED DOCTOR TO INFORM HIM OF SUSPECTED AIR LEAK IN CHEST TUBE DUE TO EXCESSIVE BUBBLING AND HEARD WITH ASSESSMENT. PATIENT HAS IV TO LEFT FOREARM. PATIENT TOLERATING ICE CHIPS. PATIENT SAYING HE CAN "BREATHE BETTER ALREADY". NO FURTHER NEEDS AT THIS TIME. HEAD TO TOE ASSESSMENT COMPLETE. CALL LIGHT WITHIN REACH.
--- NOTE | 2021-05-04 15:20 | NUR ---
notifed, Discussed with him concerns of an air leak. shipping and receiving supervisor also in to assess, agree with assessment of an air leak. Supplies at bedside per request. He will be in to see patient in about an hour. Patient Vitals remain stable. Denies shortness of air. Wanting to remove his O2 advised him to continue to wear for lung healing.
--- NOTE | 2021-05-04 16:40 | NUR ---
DR. RODAS IN WITH PATIENT. ASSESSED CHEST TUBE. ADDED FOAM TAPE TO REINFORCE DRESSING. DISCUSSED PLAN OF CARE WITH PATIENT. WILL FOLLOW UP IN THE MORNING.
[2021-05-04 17:32] LABS: BASO % 0.3 % (0.0-2.0); EOS % 0.2 % (0-4.0); GRAN # 11.1 (1.4-6.5); GRAN % 89.1 % (42.2-75.2); LYMPH # 0.8 (1.2-3.4); LYMPH % 6.8 % (20.0-51.0); MEAN CELL VOLUME 79 fl (80.0-100.0); MEAN CORPUSCULAR HGB CONC 30 g/dl (33.0-37.0); MEAN PLATELET VOLUME 9.9 fl (7.4-10.4); MONO # 0.4 (0.1-0.6); MONO % 3.1 % (1.7-9.3); PLATELET COUNT 616 K/mm3 (130-400); RED BLOOD COUNT 3.98 M/mm3 (4.20-5.60); REDCELL DISTRIBUTION WIDTH-CV 15.8 % (11.5-14.5)
[2021-05-04 17:37] LABS: HEMATOCRIT 31.5 % (42.0-52.0); HEMOGLOBIN 9.3 g/dl (13.5-18.0); MEAN CORPUSCULAR HEMOGLOBIN 23 pg (27.0-31.0)
[2021-05-04 17:53] LABS: ALBUMIN 3.7 gm/dL (3.5-5.0); BILIRUBIN,TOTAL 0.5 mg/dL (0.0-1.0); CALCIUM 8.9 mg/dL (8.4-10.2); CREATININE, serum 1.29 (0.66-1.25); POTASSIUM 4.4 mmol/L (3.4-5.0); TOTAL PROTEIN 7.4 gm/dL (6.4-8.2)
--- NOTE | 2021-05-04 19:10 | NUR ---
RECEIVED CHANGE OF SHIFT REPORT FROM DAY SHIFT NURSES.
--- NOTE | 2021-05-04 19:10 | NUR ---
Roxicodone for pain per patient request. Patient refuses tylenol & motrin, reports he can not take due to liver cirrosis. Patient continues to deny shortness of breath. Vitals stable On 2L. Scds ble. Report to Liana callahan
--- NOTE | 2021-05-04 19:41 | NUR ---
REPORTS NO DISCOMFORT/NAUSEA AT THIS TIME. DENIES CHEST PAIN/SOA AT THIS TIME. OXYGEN CONTINUES PER NC PER DR ORDER. CHEST TUBE FLUCTUATES WITH C&DB.
[2021-05-05] VITALS (8 sets, daily range): BP systolic 102–122; BP diastolic 63–79; PULSE 56–77; TEMP 97.4–98.2
--- NOTE | 2021-05-05 05:43 | NUR ---
PATIENT REPORTS DISCOMFORT TO CHEST TUBE SITE AND INABILITY TO SLEEP DUE TO CHEST TUBE TO RIGHT SIDE, STATED HE IS A RIGHT SIDED SLEEPER. OXYGEN CONTINUES PER NC. VOIDING AT BEDSIDE WITH NO REPORTED PROBLEMS. REQUESTED AND GIVEN ZOFRAN FOR C/O UPSET STOMACH ONCE DURING SHIFT, SEE MAR. CHEST TUBE TO WATERSEAL PLEURAVAC, DRAINAGE OBSERVED IN COLLECTION CHAMBER RED, WITH APPROPRIATE BLUBBLING AND FLUCTUATION OF DRAINAGE IN TUBE WITH COUGHING. IV SITE IN PLACE.
[2021-05-05 06:00] LABS: HEMOGLOBIN 8.2 g/dl (13.5-18.0)
[2021-05-05 06:01] LABS: HEMATOCRIT 26.8 % (42.0-52.0)
[2021-05-05 06:12] LABS: CALCIUM 8.4 mg/dL (8.4-10.2); CREATININE, serum 1.39 (0.66-1.25); POTASSIUM 4.4 mmol/L (3.4-5.0)
--- NOTE | 2021-05-05 06:37 | NUR ---
CHANGE OF SHIFT REPORT GIVEN TO DAY SHIFT NURSEDIXON RN.
--- NOTE | 2021-05-05 09:30 | NUR ---
notifed & update given & labs reviewed as well as chest xray results. Orders obtained. Hospitals[facility] consult called to Maru Eng. Roxicodone given for continued pain to right side. Chest tube remains to 20cmhg suction, air leak remains present. Chest tube dressing intact. Drainage noted. reenforced with gauze & tape. Patient Vss on 2L. He deneis SOB. IVf started per orders. He did well with breakfast. Only complaint is of being tired & not being able to sleep. Will monitor closely.
--- NOTE | 2021-05-05 11:39 | NUR ---
Sw met with the pt who stated his preference to return home once medically stable. The pt lives at home alone. The pt Aristides is his son, Jesús Morales (Michael) (ph# [phone]). The pt informed Jony that he is in indendpent on all ADLs and does not use any DME, but does struggle to walk. I asked the pt if he used walkers or canes for his walking and he stated no. The pt PCP is Caren Peng and he gets his medications from [facility]. The pt is using [facility] and meals on wheels for food troubles, but would like a new referrals sent out as they havent been coming. No other needs stated at this time. Sw to wait further recommendations and follow up as needed. D/c: Home, pending
--- NOTE | 2021-05-05 13:30 | NUR ---
Patient did well with lunch. tyring to rest. Will monitor.
--- NOTE | 2021-05-05 14:37 | NUR ---
Patient had an episode of nausea. zofran per orders & oxicodone for pain per orders. He thinks his lunch upset his stomach.
--- NOTE | 2021-05-05 16:00 | NUR ---
Patient up to chair. Assisted with hygiene. Patient also sat on toliet only able to pass gas, No BM. complaints of constipation. Chest tube dressing reenforced. Tape was loose. Shadowing noted on dressing. Patient thankful for cares.
[2021-05-05 16:39] LABS: COLLECTION METHOD CLEAN CATCH
[2021-05-05 16:47] LABS: PH 5 (5-8); SQUAMOUS EPITHELIAL None Seen /hpf; URINE APPEARANCE Clear; URINE BACTERIA None Seen /hpf; URINE BILIRUBIN Negative (NEGATIVE); URINE BLOOD 1+ (NEGATIVE); URINE COLOR Yellow; URINE GLUCOSE Negative (NEGATIVE); URINE KETONE Negative (NEGATIVE); URINE LEUKOCYTE ESTERASE Negative (NEGATIVE); URINE NITRATE Negative (NEGATIVE); URINE PROTEIN(semi-quant) Negative (NEGATIVE); URINE RBC 0-2 /hpf; URINE UROBILINOGEN Negative (NEGATIVE)
--- NOTE | 2021-05-05 18:00 | NUR ---
rounded. New dressing applied to his chest tube site by him. dressing now clean dry & intact. Patient resting in bed. refuses dinner due to upset stomach. One tab norco for increased complaints of pain. Will report off to nightnurse.
--- NOTE | 2021-05-05 22:54 | NUR ---
Patient assessed around 2129. Alert and oriented, and able to make needs known. Given PRN Roxicodone for pain and Zofran for nausea. Peripheral IV to left forearm with fluids running per order. Reports SOB with exertion. LS CTA on left lung hamilton, diminished on right. Chest tube with blood tinged drainage via suction per orders. Site CDI. HRR. Capillary refill less than 3 seconds. non-tentig skin turgor. BSAx4. Abdomen soft and non-tender. No edema. Voices no questions, needs, or concerns at this time. Resting in bed with call light within reach.
[2021-05-06 03:08] VITALS: BP 108/67; PULSE 69; TEMP 97.6
--- NOTE | 2021-05-06 05:36 | NUR ---
Patient has been awake most of the night. Has recieved PRN Roxicodone for pain about every 4 hours. Chest tube to right chest continues to have bloody drainage, via continuous suction per orders. Patient continues on IV fluids per orders. Voices no further questions, needs, or concerns at this time. Resting in bed with call light within reach.
[2021-05-06 07:21] VITALS: BP 109/66; PULSE 67; TEMP 97.6
--- NOTE | 2021-05-06 11:22 | NUR ---
First visit from the mineral resources inspector. Chaplain mirelesd with patient.
[2021-05-06 11:44] VITALS: BP 98/62; PULSE 67; TEMP 97.9
[2021-05-06 12:17] LABS: ALBUMIN 3.2 gm/dL (3.5-5.0); BILIRUBIN,TOTAL 0.2 mg/dL (0.0-1.0); CALCIUM 8.4 mg/dL (8.4-10.2); CREATININE, serum 1.32 (0.66-1.25); POTASSIUM 4.1 mmol/L (3.4-5.0); TOTAL PROTEIN 6.5 gm/dL (6.4-8.2)
[2021-05-06 12:21] LABS: BASO % 0.5 % (0.0-2.0); EOS # 0.1 (0.0-0.7); EOS % 1.5 % (0-4.0); GRAN # 5.3 (1.4-6.5); GRAN % 70.4 % (42.2-75.2); LYMPH # 1.4 (1.2-3.4); LYMPH % 19.2 % (20.0-51.0); MEAN CELL VOLUME 81 fl (80.0-100.0); MEAN CORPUSCULAR HGB CONC 30 g/dl (33.0-37.0); MEAN PLATELET VOLUME 10.1 fl (7.4-10.4); MONO # 0.6 (0.1-0.6); MONO % 7.9 % (1.7-9.3); PLATELET COUNT 567 K/mm3 (130-400); RED BLOOD COUNT 3.36 M/mm3 (4.20-5.60); REDCELL DISTRIBUTION WIDTH-CV 15.9 % (11.5-14.5)
[2021-05-06 12:38] LABS: HEMATOCRIT 27.1 % (42.0-52.0); HEMOGLOBIN 8.1 g/dl (13.5-18.0); MEAN CORPUSCULAR HEMOGLOBIN 24 pg (27.0-31.0)
--- NOTE | 2021-05-06 15:26 | NUR ---
Contacted Yuki PADILLA, patient having reflux.
[2021-05-06 16:00] VITALS: BP 112/66; PULSE 76; TEMP 97.5
--- NOTE | 2021-05-06 18:39 | NUR ---
Patient doing well throughout the day. Chest tube maintained to right chest with serosanginous drainge present. Dressing is CDI. Pain medications given per orders. Denies furhter needs at this time. Will report off to plant operator/shift supervisor.
--- NOTE | 2021-05-06 19:03 | NUR ---
RECEIVED CHANGE OF SHIFT REPORT FROM DAY SHIFT NURSE. PATIENT DENIES ANY NEEDS AT TIME OF REPORT.
[2021-05-06 20:49] VITALS: BP 104/74; PULSE 73; TEMP 98
--- NOTE | 2021-05-06 23:07 | NUR ---
PATIENT REQUESTED AND GIVEN PAIN MEDS EARLIER IN EVENING, SEE MAR FOR ADMIN TIME OF MEDS. PATIENT RECENTLY REPORTING HAD ATTEMPTED TO PASS BM, PASSED FLATUS, VOIDED SMALL AMOUNT. PATIENT REPORTS UNABLE TO DRINK SODAS, GIVEN DIET PEPSI AND REGULAR PEPSI, THAT PATIENT STATES HE IS UNABLE TO DRINK. WANTING TO DRINK WATER, REMINDED PATIENT OF FREE WATER RESTRICTION TO TREAT LOW SODIUM ( PER LAB RESULTS) PATIENT REPORTS IS HAVING STOMACH PAIN, DENIES NAUSEA AND VERBALIZED HE DOES NOT WANT NAUSEA MEDS. GIVEN TUMS, SEE MAR. PCT REPORTS PATIENT HAS SMALL EMESIS, PATIENT STATES HE DID HAVE SOME EMESIS "BUT IT WASN'T MUCH TO SPEAK OF", STATES EMESIS OUTPUT DISCARDED PER PATIENT REQUEST. STANDS TO VOID AT BEDSIDE PER SELF, PATIENT PREFERENCE, STATING HE LIKES HIS PRIVACY WITH VOIDING OR PASSING STOOL. NO OTHER NEEDS REPORTED.
[2021-05-06 23:38] VITALS: BP 108/72; PULSE 71; TEMP 97.6
--- NOTE | 2021-05-07 03:16 | NUR ---
PATIENT SITTING UP IN CHAIR WITH NO FURTHER NEEDS OR CONCERNS REPORTED AT THIS TIME. SEE MAR FOR PAIN MEDS GIVEN EARLIER. CHEST TUBE TO 20CM WATER SEAL SUCTION.
[2021-05-07 04:07] VITALS: BP 108/74; PULSE 73; TEMP 97.4
--- NOTE | 2021-05-07 07:05 | NUR ---
CHANGE OF SHIFT REPORT GIVEN TO DAY SHIFT NURSE, MIGUEL KEENE.
--- NOTE | 2021-05-07 08:00 | NUR ---
Patient sitting up in bed eating breakfast. Alert and oriented x 3. Assessment complete. Denies pain at this time. Chest tube to right chest with occlusive dressing present, dressing is CDI. Draining serosanguinous fluid. Patient denies needs at this time.
[2021-05-07 08:26] VITALS: BP 112/73; PULSE 73; TEMP 97.6
--- NOTE | 2021-05-07 09:30 | NUR ---
Hospitalist in to see patient. States pain 5/10 to chest tube site, medications given per orders.
[2021-05-07 10:55] LABS: BASO # 0.1 (0.0-0.2); BASO % 0.7 % (0.0-2.0); EOS # 0.1 (0.0-0.7); EOS % 1.1 % (0-4.0); GRAN % 71.1 % (42.2-75.2); LYMPH # 1.3 (1.2-3.4); LYMPH % 18.2 % (20.0-51.0); MEAN CELL VOLUME 79 fl (80.0-100.0); MEAN CORPUSCULAR HGB CONC 30 g/dl (33.0-37.0); MEAN PLATELET VOLUME 10.5 fl (7.4-10.4); MONO # 0.6 (0.1-0.6); MONO % 8.6 % (1.7-9.3); PLATELET COUNT 564 K/mm3 (130-400); RED BLOOD COUNT 3.27 M/mm3 (4.20-5.60); REDCELL DISTRIBUTION WIDTH-CV 15.9 % (11.5-14.5)
[2021-05-07 10:57] LABS: CALCIUM 8.9 mg/dL (8.4-10.2); CREATININE, serum 1.21 (0.66-1.25); HEMATOCRIT 25.9 % (42.0-52.0); HEMOGLOBIN 7.8 g/dl (13.5-18.0); MEAN CORPUSCULAR HEMOGLOBIN 24 pg (27.0-31.0); POTASSIUM 4.2 mmol/L (3.4-5.0)
[2021-05-07 12:26] VITALS: BP 104/70; PULSE 72; TEMP 97.5
--- NOTE | 2021-05-07 14:09 | NUR ---
Jony faxed over referral to janes daigle 05/07
[2021-05-07 16:01] VITALS: BP 112/83; PULSE 78; TEMP 97
--- NOTE | 2021-05-07 17:00 | NUR ---
Chest tube to waterseal per orders.
--- NOTE | 2021-05-07 18:04 | NUR ---
Patient doing well throughout the day. Nausea this afternoon, zofran given per orders. Small amount of emisis x 3. Increased nausea after eating. Patient denies pain at this time. Patient states he is passing gas; no BM at this time. Denies further needs at this time. Will report off to project designer.
--- NOTE | 2021-05-07 19:11 | NUR ---
RECEIVED CHANGE OF SHIFT REPORT FROM DAY SHIFT NURSE.
[2021-05-07 19:55] VITALS: BP 116/69; PULSE 70; TEMP 97.5
[2021-05-07 23:13] VITALS: BP 109/65; PULSE 69; TEMP 97.5
[2021-05-08 03:19] VITALS: BP 117/68; PULSE 64; TEMP 97.5
--- NOTE | 2021-05-08 03:30 | NUR ---
PATIENT SLEEPING, DOES NOT WAKE WHEN STAFF ENTER ROOM, BREATHING NONLABORED AND EVEN. CHEST TUBE TO WATERSEAL, OFF WALL SUCTION. DENIES CHEST PAIN/SOA/NAUSEA THROUGHOUT SHIFT AT THIS TIME. HAS REQUESTED/GIVEN PAIN MEDS, SEE MAR FOR MEDS GIVEN. NOT ON OXYGEN THIS SHIFT AT THIS TIME.
[2021-05-08 07:06] LABS: BASO % 0.6 % (0.0-2.0); EOS # 0.2 (0.0-0.7); EOS % 2.6 % (0-4.0); GRAN # 4.2 (1.4-6.5); GRAN % 63.4 % (42.2-75.2); LYMPH # 1.7 (1.2-3.4); LYMPH % 25.3 % (20.0-51.0); MEAN CELL VOLUME 81 fl (80.0-100.0); MEAN CORPUSCULAR HGB CONC 30 g/dl (33.0-37.0); MEAN PLATELET VOLUME 10.9 fl (7.4-10.4); MONO # 0.5 (0.1-0.6); MONO % 7.8 % (1.7-9.3); PLATELET COUNT 512 K/mm3 (130-400); RED BLOOD COUNT 3.14 M/mm3 (4.20-5.60); REDCELL DISTRIBUTION WIDTH-CV 15.9 % (11.5-14.5)
[2021-05-08 07:12] LABS: HEMATOCRIT 25.3 % (42.0-52.0); HEMOGLOBIN 7.5 g/dl (13.5-18.0); MEAN CORPUSCULAR HEMOGLOBIN 24 pg (27.0-31.0)
--- NOTE | 2021-05-08 07:15 | NUR ---
CHANGE OF SHIFT REPORT GIVEN TO DAY SHIFT NURSE, BRANDY KEENE.
[2021-05-08 07:18] LABS: CALCIUM 8.7 mg/dL (8.4-10.2); CREATININE, serum 1.19 (0.66-1.25); POTASSIUM 4.2 mmol/L (3.4-5.0)
[2021-05-08 09:03] VITALS: BP 101/66; PULSE 66; TEMP 97.4
--- NOTE | 2021-05-08 09:11 | NUR ---
PT GOT OUT OF BED. BED ALARM WHEN OFF. PT IS STANDING USING THE URINAL AND STATES HIS SIDE IS GETTING WET. CHEST TUBE CHECKED AND NOTICED LEAKING. CALL PLACED TO DR GRAYSON, DRESSING CHANGED, AND RADIOLOGY CALLED TO CHECK PLACEMENT OF HIS CHEST TUBE. WILL CONTINUE TO MONITOR.
[2021-05-08 13:02] VITALS: BP 101/62; PULSE 65; TEMP 97.7
[2021-05-08 17:31] VITALS: BP 111/69; PULSE 70; TEMP 97.5
--- NOTE | 2021-05-08 18:28 | NUR ---
0700 PT RECEIVED RESTING IN BED. NO S/S OF DISTRESS NOTICED. PT DENIES PAIN AT THIS TIME. CHEST TUBE NOTICED TO THE RIGHT SIDE TO WATERSEAL, DRAINING SEROSANGUINEOUS FLUID, DRESSING INTACT TO THE SITE. 0800 V/S STABLE. PT ABDOMEN NOTICED DISTENDED AND FIRM. 0900 PT ATE HIS MEAL. X-RAY OF THE ABDOMEN COMPLETED, HOSPITALIST MADE AWARE. PT OFFERED SUPPOSITORY DUE TO THE STOOL FOUND ON HIS X-RAY AND HE REFUSE. OTHER LAXATIVE AND STOOL SOFTNER MEDICATIONS OFFERED. 1200 SURGEON SAW PT, CHEST TUBE IS STILL IN PLACE. WILL CONTINUE TO MONITOR CHEST TUBE. PT EDUCATED TO CALL WHEN HE WANTS TO GET OUT OF BED. 1300 PT EDUCATED TO AMBULATE BUT REFUSES, RISK AND BENEFITS OF NOT HAVING A BOWEL MOVEMENT EXPLAINED TO PT HOWEVER HE NEEDS REINFORCEMENT. COMFORT MEASURES IN PLACE WILL CONTINUE TO MONITOR.
--- NOTE | 2021-05-08 19:18 | NUR ---
RECEIVED CHANGE OF SHIFT REPORT FROM DAY SHIFT NURSE.
[2021-05-08 20:09] VITALS: BP 101/67; PULSE 79; TEMP 97.1
[2021-05-09] VITALS (7 sets, daily range): BP systolic 101–123; BP diastolic 65–74; PULSE 63–73; TEMP 97.4–97.9
--- NOTE | 2021-05-09 03:09 | NUR ---
PATIENT C/O NAUSEA SINCE START OF THIS SHIFT, HAD EMESIS OF SMALL AMOUNT OF WHITISH CLEAR LIQUIDS WITH LIGHT COLORED FLECKS OF DEBRIS OBSERVED. DENIES PASSING FLATUS FIRST PART OF THIS TIME. PATIENT AGREED TO SUPPOSITORY, SEE MAR FOR ADMIN OF SUPPOSITORY. PASSED SMALL PART OF HARD STOOL WITH LIQIUD STOOL AND PATIENT REPORTED PASSED SOME FLATUS POST SUPPOSITORY. PATIENT REFUSED SOME OF HS MEDS, SEE MAR, STATING DID NOT THINK HE COULD TOLERATE STOOL SOFTENER MEDS. DRANK SMALL AMOUNT OF SPRITE AND WOULD REPORT SOME ACID REFLUX THAT PATIENT REQUESTED AND GIVEN TUMS.
--- NOTE | 2021-05-09 03:18 | NUR ---
PATIENT PASSED MORE LIQUIDS STOOL AND ALSO MORE FLATUS. CONTINUES TO VOID WITH NO PROBLEMS.
--- NOTE | 2021-05-09 03:31 | NUR ---
PATIENT STATES IS PASSING FLATUS WITH LIQUIDS STOOLS BUT STILL FEELS STOMACH "SORENESS" AND REPORTS STILL FEELS BLOATED.
--- NOTE | 2021-05-09 04:11 | NUR ---
PATIENT PASSED LARGE AMOUNT OF DARK GREEN EMESIS WITH SMALL FLECKS OF DEBRIS. REPORTS HIS ABD "FEELS BETTER THAN BEFORE" VS TAKEN, SEE MEDITECH. DENIES CHEST PAIN/SOA AT THIS TIME. INFORMED ONCALL HOSP PROVIDER WITH NO ORDERS ENTERED/GIVEN AT THIS TIME. WILL CONTINUE TO MONITOR PATIENT'S STATUS.
--- NOTE | 2021-05-09 07:20 | NUR ---
CHANGE OF SHIFT REPORT GIVEN TO DAY SHIFT NURSE, MIGUEL KEENE.
[2021-05-09 07:37] LABS: BASO % 0.5 % (0.0-2.0); EOS % 0.5 % (0-4.0); GRAN # 6.1 (1.4-6.5); GRAN % 78.8 % (42.2-75.2); HEMATOCRIT 26.4 % (42.0-52.0); LYMPH % 12.7 % (20.0-51.0); MEAN CELL VOLUME 80 fl (80.0-100.0); MEAN CORPUSCULAR HEMOGLOBIN 24 pg (27.0-31.0); MEAN CORPUSCULAR HGB CONC 30 g/dl (33.0-37.0); MEAN PLATELET VOLUME 10.3 fl (7.4-10.4); MONO # 0.6 (0.1-0.6); MONO % 7.2 % (1.7-9.3); PLATELET COUNT 601 K/mm3 (130-400); RED BLOOD COUNT 3.32 M/mm3 (4.20-5.60); REDCELL DISTRIBUTION WIDTH-CV 15.5 % (11.5-14.5)
[2021-05-09 07:44] LABS: CALCIUM 8.6 mg/dL (8.4-10.2); CREATININE, serum 1.31 (0.66-1.25); POTASSIUM 4.4 mmol/L (3.4-5.0)
--- NOTE | 2021-05-09 08:30 | NUR ---
Patient in bed resting. Alert and oriented x 3. Assessment complete. Medications given for pain at chest tube site. Dressing is CDI. Chest tube to waterseal with serosangunous fluid draining. Son at bedside. Patient denies further needs at this time.
--- NOTE | 2021-05-09 10:30 | NUR ---
Contacted Karla Ruiz, patient and son tearful after meeting with hospitalist.
--- NOTE | 2021-05-09 12:16 | NUR ---
Left message for Dr. Peterson for consult
--- NOTE | 2021-05-09 12:33 | NUR ---
Follow-up visit; Patient's nurse informed Mortgage Loan Processing Clerk that patient had received bad news of a serious diagnosis and asked that Mortgage Loan Processing Clerk come and be with him and his son. Mortgage Loan Processing Clerk readily complied and found that patient didn't wish to talk at this time though wanted to see a Cathollic Hedis Registered Nurse Rn. Chapraeb arranged that a Hedis Registered Nurse Rn come to visit patient and administer the Anointing of the Sick.
--- NOTE | 2021-05-09 14:47 | NUR ---
Bed bath provided to patient. Oral hygiene independently. Linens changed.
--- NOTE | 2021-05-09 16:18 | NUR ---
Patient called out to nurses station, states continues pain after oxycodone administration. Additional medications given per orders.
--- NOTE | 2021-05-09 18:25 | NUR ---
Patient in bed resting. Son at bedside throughout the day. Denies pain at this time. Chest tube maintained with serosanguinous drainage. Patient denies further needs at this time. Will report off to restaurant shift leader.
--- NOTE | 2021-05-09 18:55 | NUR ---
RECEIVED CHANGE OF SHIFT REPORT FROM DAY SHIFT NURSE. PATIENT SLEEPING DURING REPORT, DID NOT WAKE WHEN ROOM ENTERED BY STAFF.
--- NOTE | 2021-05-10 | NUR ---
PATIENT SLEEPING, DOES NOT WAKE WHEN DOOR TO ROOM IS OPENED BY STAFF. BREATHING NONLABORED AND EVEN. CHEST TUBE TO 20 CM WATER SEAL, DRAINAGE IN TUBING FLUCTUATED WITH RESPIRATIONS AND COUGHING.
[2021-05-10 03:34] VITALS: BP 117/69; PULSE 68; TEMP 98.1
[2021-05-10 06:49] LABS: BASO % 0.4 % (0.0-2.0); EOS # 0.1 (0.0-0.7); EOS % 1.2 % (0-4.0); LYMPH # 1.2 (1.2-3.4); LYMPH % 16.5 % (20.0-51.0); MEAN CELL VOLUME 78 fl (80.0-100.0); MEAN CORPUSCULAR HGB CONC 31 g/dl (33.0-37.0); MEAN PLATELET VOLUME 10.1 fl (7.4-10.4); MONO # 0.9 (0.1-0.6); MONO % 12.6 % (1.7-9.3); PLATELET COUNT 627 K/mm3 (130-400); RED BLOOD COUNT 3.43 M/mm3 (4.20-5.60); REDCELL DISTRIBUTION WIDTH-CV 15.6 % (11.5-14.5)
[2021-05-10 06:51] LABS: CALCIUM 8.1 mg/dL (8.4-10.2); CREATININE, serum 1.36 (0.66-1.25); POTASSIUM 4.7 mmol/L (3.4-5.0)
[2021-05-10 06:53] LABS: HEMATOCRIT 26.9 % (42.0-52.0); HEMOGLOBIN 8.2 g/dl (13.5-18.0); MEAN CORPUSCULAR HEMOGLOBIN 24 pg (27.0-31.0)
--- NOTE | 2021-05-10 07:17 | NUR ---
CHANGE OF SHIFT REPORT GIVEN TO DAY SHIFT NURSE, MIGUEL KEENE.
[2021-05-10 08:00] VITALS: BP 116/67; PULSE 67; TEMP 97.4
--- NOTE | 2021-05-10 10:56 | NUR ---
Follow-up visit; Patient thanked Knot Cutter for locating a Clay Dry Press Mixer Operator yesterday and for wishing him well and God's blessings this morning.
[2021-05-10 11:45] VITALS: BP 108/66; PULSE 65; TEMP 97.4
[2021-05-10 16:00] VITALS: BP 110/75; PULSE 65; TEMP 97.7
--- NOTE | 2021-05-10 19:00 | NUR ---
Patient doing well throughout the day. Encouraged increase activity today, patient did sit up by sink to shave this afternoon. CT this afternoon. Patient refusing meals today, did have small amount of emisis after water intake. Patient stated he was passing gas this AM but has not passed any since. Chest tube maintined to waterseal, red-tinged fluid continues draining. Patient denied pain through the day but stated increased pain this afternoon, Medications given per orders prior to patient going to CT. Son at bedside this afternoon. Denies further needs at this time. Reported off to cook night.
--- NOTE | 2021-05-10 19:10 | NUR ---
RECEIVED CHANGE OF SHIFT REPORT FROM DAY SHIFT NURSE. PATIENT BACK FROM RADIOLOGY, REQUESTING DILAUDID, SEE MAR FOR MEDS GIVEN. CHEST TUBE IN PLACE, DRAINAGE FLUCTUATION WITH BREATHING AND COUGHING. REPORTS HAS PRODUCTIVE COUGH "COUGH IN TISSUE AND THROW IT AWAY", HAS NOT SEEN APPEARANCE OF SPUTUM.
[2021-05-10 19:15] VITALS: BP 117/70; PULSE 68; TEMP 97.3
[2021-05-11] VITALS (7 sets, daily range): BP systolic 97–127; BP diastolic 74–87; PULSE 70–83; TEMP 97.4–97.8
--- NOTE | 2021-05-11 | NUR ---
PATIENT SLEEPING AFTER TAKING PAIN MEDS, SEE MAR FOR MEDS GIVEN. PATIENT USING URINAL FOR VOIDING, WOULD GET UP TO BSC WHEN ATTEMPTING TO PASS FLATUS YESTERDAY, HAD NOT GOTTEN UP TO BSC THIS EVEN DUE TO NO URGE TO PASS FLATUS OR ATTEMPT TO PASS STOOL. CONTINUES TO C/O ACID REFLUX "REAL BAD" AND AGREED TO TAKE TUMS THIS EVENING, SEE MAR. TOLERATING SMALL SIPS OF ICED WATER, GIVEN 180 MLS EACH TIME PATIENT REQUESTS LIQUIDS WITH PILLS TO TAKE. DENIES CHEST PAIN/SOA SO FAR THIS SHIFT. ON ROOM AIR WITH NO REPORTED COMPLAINTS THUS FAR.
--- NOTE | 2021-05-11 01:00 | NUR ---
CHEST TUBE DC'D BY DR GRAYSON AT THIS TIME.
--- NOTE | 2021-05-11 01:24 | NUR ---
PATIENT SLEEPING, DOES NOT WAKE WHEN DOOR TO ROOM IS OPENED BY STAFF ON NURSING ROUNDS THUS FAR THIS SHIFT. BREATHING NONLABORED AND EVEN WITH CHEST TUBE DRAINAGE FLUCTUATION OBSERVED WITH RESPIRATIONS. CALL LIGHT WITHIN REACH.
--- NOTE | 2021-05-11 05:29 | NUR ---
OFFERED TO DULCOLAX SUPP THAT PATIENT REFUSES WHEN DISCUSSED. ENCOURAGED PATIENT TO INCREASE OUT OF BED ACTIVITY THAT PATIENT DOES ACKNOWLEDGE VERBALLY. PATIENT LAYING IN BED CONTINUOUSLY THROUGHOUT SHIFT.
--- NOTE | 2021-05-11 07:03 | NUR ---
CHANGE OF SHIFT REPORT GIVEN TO DAY SHIFT NURSE, BRITTNY KEENE.
[2021-05-11 08:04] LABS: BASO % 0.4 % (0.0-2.0); EOS # 0.1 (0.0-0.7); EOS % 1.1 % (0-4.0); GRAN # 5.2 (1.4-6.5); GRAN % 71.1 % (42.2-75.2); LYMPH # 1.2 (1.2-3.4); LYMPH % 16.2 % (20.0-51.0); MEAN CELL VOLUME 79 fl (80.0-100.0); MEAN CORPUSCULAR HGB CONC 30 g/dl (33.0-37.0); MEAN PLATELET VOLUME 10.3 fl (7.4-10.4); MONO # 0.8 (0.1-0.6); MONO % 10.9 % (1.7-9.3); PLATELET COUNT 724 K/mm3 (130-400); RED BLOOD COUNT 3.62 M/mm3 (4.20-5.60); REDCELL DISTRIBUTION WIDTH-CV 15.4 % (11.5-14.5)
[2021-05-11 08:15] LABS: CALCIUM 8.3 mg/dL (8.4-10.2); CREATININE, serum 1.44 (0.66-1.25); POTASSIUM 4.7 mmol/L (3.4-5.0)
[2021-05-11 08:37] LABS: HEMATOCRIT 28.4 % (42.0-52.0); HEMOGLOBIN 8.5 g/dl (13.5-18.0); MEAN CORPUSCULAR HEMOGLOBIN 23 pg (27.0-31.0)
--- NOTE | 2021-05-11 11:04 | NUR ---
Patient alert and oriented, answers questions appropriately. See assessment. Abdomen soft, non distended, non tender. Bowel sounds hypoactive x4 quads. No flatus. Lungs clear in upper lobes, decreased in bases. No c/o SOA. Oxygen at 1l/nc. Patient refuses iron and miralax, noted to have stool burden in bowel on x-ray. Patient encouraged to take miralax, continues to refuse, does accept dulcolax suppository which was given. Patient repeatedly asks for IV Dilaudid, but does not endorse any pain, states he wants Dilaudid "because I don't feel good and it makes me feel better". Dilaudid not given for 0/0 pain. No other c/o at this time.
[2021-05-11 16:35] LABS: CARCINOEMBRYONIC ANTIGEN 1.5 ng/mL (0.0-5.0)
--- NOTE | 2021-05-11 21:30 | NUR ---
PT IN BED. USING BSC NEEDED. IVF INFUSING TO RT FOREARM FOR 1 BAG, SITE WITHOUT REDNESS OR SWELLING. HAS DRSG TO RT CHEST FROM OLD CHEST TUBE. HAS CREPITUS TO POSTERIOR RT LOWER BACK. PT HAS FLAT AFFECT. HAS OLD GREEN EMESIS IN BASIN, EMPTIED AT THIS TIME.
--- NOTE | 2021-05-11 22:41 | NUR ---
PT MEDICATED WITH HS MEDS INCLUDING DOSE OF ZOFRAN IV FOR NAUSEA.
[2021-05-12 03:17] VITALS: BP 109/64; PULSE 82; TEMP 97.8
--- NOTE | 2021-05-12 06:00 | NUR ---
PT HAS 50CC OF BROWN EMESIS IN BASIN. HAS IVF INFUSING FOR ONE LITER ONLY. OFFERS NO COMPLAINTS THIS AM.
[2021-05-12 07:17] LABS: BASO % 0.1 % (0.0-2.0); GRAN # 13.1 (1.4-6.5); GRAN % 89.7 % (42.2-75.2); LYMPH # 0.7 (1.2-3.4); MEAN CELL VOLUME 79 fl (80.0-100.0); MEAN CORPUSCULAR HGB CONC 30 g/dl (33.0-37.0); MEAN PLATELET VOLUME 10.3 fl (7.4-10.4); MONO # 0.7 (0.1-0.6); MONO % 4.8 % (1.7-9.3); PLATELET COUNT 640 K/mm3 (130-400); RED BLOOD COUNT 3.53 M/mm3 (4.20-5.60); REDCELL DISTRIBUTION WIDTH-CV 15.6 % (11.5-14.5)
[2021-05-12 07:19] LABS: HEMATOCRIT 27.7 % (42.0-52.0); HEMOGLOBIN 8.2 g/dl (13.5-18.0); MEAN CORPUSCULAR HEMOGLOBIN 23 pg (27.0-31.0)
[2021-05-12 07:35] LABS: CALCIUM 8.2 mg/dL (8.4-10.2); CREATININE, serum 1.49 (0.66-1.25); POTASSIUM 4.6 mmol/L (3.4-5.0)
--- NOTE | 2021-05-12 08:00 | NUR ---
Patient in bed resting. Alert and oriented x 3. Assessment complete. Patient denies pain at this time. Previous chest tube site with occlusive dressing, draining serosangunous fluid. Patient denies further needs at this time.
[2021-05-12 08:45] VITALS: BP 103/69; PULSE 77; TEMP 97.5
--- NOTE | 2021-05-12 09:40 | NUR ---
Educated patient on bowel prep.
--- NOTE | 2021-05-12 11:46 | NUR ---
Dressing to right chest tube site changed. Patient continues having serosangunous drainage
[2021-05-12 12:31] VITALS: BP 105/71; BP 105/714; PULSE 74; TEMP 96.8
--- NOTE | 2021-05-12 12:49 | NUR ---
Patient had small amount of emisis earlier this AM, Denies nausea at this time.
--- NOTE | 2021-05-12 15:31 | NUR ---
Patient is almost done with first pitcher of bowel prep. Had [address] of bile green emisis. Dr. Sanders aware.
[2021-05-12 16:40] VITALS: BP 110/76; PULSE 77; TEMP 97.6
--- NOTE | 2021-05-12 18:17 | NUR ---
Patient doing well throughout the day, encouraged increased activity. Continues having serosanguinous drainage from chest tube site. Patient denies BM with bowel prep. Has had small amounts of emisis throughout the day. Denies further needs at this time. Will report off to night warehouse manager.
[2021-05-12 19:38] VITALS: BP 112/76; PULSE 78; TEMP 98
--- NOTE | 2021-05-12 20:00 | NUR ---
PT DRINKING LAST PITCHER OF MIRALAX BOWEL PREP. STILL HAVING INTERMITTENT EMESIS. ABD FIRM, BOWEL SOUNDS ACTIVE. SL TO RIGHT FOREARM, FLUSHES WELL. DOES WANT HS MEDS EXCEPT SENNA.
--- NOTE | 2021-05-12 20:48 | NUR ---
PT FINISHES BOWEL PREP. HAS HAD NO STOOLS. MEDICATED WITH HS MEDS INCLUDING DOSE OF IV ZOFRAN AND DILAUDID FOR GENERAL DISCOMFORT.
[2021-05-13] VITALS (14 sets, daily range): BP systolic 96–113; BP diastolic 55–71; PULSE 66–102; TEMP 97.5–98.3
--- NOTE | 2021-05-13 00:32 | NUR ---
PT ASKING FOR PAIN MEDS FOR GENERAL DISCOMFORT. DILAUDID GIVEN. PT TRANSFERS TO BSC TO TRY TO HAVE BM. HAS 200CC OF EMESIS PRIOR TO GETTING UP.
--- NOTE | 2021-05-13 01:00 | NUR ---
NO RESULTS FROM BOWEL PREP.
--- NOTE | 2021-05-13 06:00 | NUR ---
PT REPORTS BEING "DEHYDRATED" AND WANTING WATER. STARTED PREOP FLUIDS AT 30CC/HR TO RT FOREARM. GIVEN PROTONIX WITH SIP OF WATER. HAS HAD NO RESULTS FROM BOWEL PREP.
--- NOTE | 2021-05-13 11:41 | NUR ---
Patient down to Endo by dania.
[2021-05-13 11:55] LABS: MEAN CELL VOLUME 78 fl (80.0-100.0); MEAN CORPUSCULAR HGB CONC 30 g/dl (33.0-37.0); MEAN PLATELET VOLUME 9.7 fl (7.4-10.4); PLATELET COUNT 547 K/mm3 (130-400); REDCELL DISTRIBUTION WIDTH-CV 15.7 % (11.5-14.5)
[2021-05-13 11:58] LABS: HEMATOCRIT 26.4 % (42.0-52.0); MEAN CORPUSCULAR HEMOGLOBIN 24 pg (27.0-31.0)
[2021-05-13 12:03] LABS: BILIRUBIN,TOTAL 0.4 mg/dL (0.0-1.0); CREATININE, serum 1.54 (0.66-1.25); POTASSIUM 3.9 mmol/L (3.4-5.0); TOTAL PROTEIN 5.9 gm/dL (6.4-8.2)
--- NOTE | 2021-05-13 12:12 | NUR ---
Hospitalist notified of chloride
--- NOTE | 2021-05-13 17:51 | NUR ---
Patient refusing to get up from bed to ambulate states " I dont want to, you cant make me". Attempted to educate patient on oxygen use since EGD, patient continues to remove, Oxygen saturation at 85-88% without oxygen; increases to 90% on 2L O2. Patient currently wearing 2L O2 via NC. Patient also refusing to eat supper states that he hates the hospital food and refuses to attempt general diet. Attempted to educate patient on increasing intake of fluids other than water due to sodium levels. Patient states he will not drink anything else. Son at bedside this afternoon. Patient denies needs at this time. Fluids infusing per orders to right forarm IV. Will report off to mold shifter.
--- NOTE | 2021-05-13 20:30 | NUR ---
Called with c/o pain to back-rating pain 7/10 on pain scale-described as throbbing. Oxycodone given per dr campos. Will monitor.
--- NOTE | 2021-05-14 00:30 | NUR ---
Resting eyes closed. No s/s of pain noted. Call light in reach. Will monitor.
[2021-05-14 03:51] VITALS: BP 115/63; PULSE 80; TEMP 97.6
--- NOTE | 2021-05-14 06:40 | NUR ---
Rested well this shift. Received oxycodone x1 for pain in back. Fluid restriction enforced. NS@100ml.hr. Denies current needs. Call light in reach. Will monitor.
[2021-05-14 06:46] LABS: MEAN CELL VOLUME 77 fl (80.0-100.0); MEAN CORPUSCULAR HGB CONC 31 g/dl (33.0-37.0); MEAN PLATELET VOLUME 10.5 fl (7.4-10.4); PLATELET COUNT 484 K/mm3 (130-400); RED BLOOD COUNT 3.28 M/mm3 (4.20-5.60); REDCELL DISTRIBUTION WIDTH-CV 15.5 % (11.5-14.5)
[2021-05-14 06:55] LABS: CALCIUM 7.6 mg/dL (8.4-10.2); CREATININE, serum 1.21 (0.66-1.25); POTASSIUM 3.7 mmol/L (3.4-5.0)
[2021-05-14 07:01] LABS: HEMATOCRIT 25.1 % (42.0-52.0); HEMOGLOBIN 7.7 g/dl (13.5-18.0); MEAN CORPUSCULAR HEMOGLOBIN 23 pg (27.0-31.0)
[2021-05-14 08:00] VITALS: BP 94/67; PULSE 76; TEMP 97.9
--- NOTE | 2021-05-14 09:30 | NUR ---
& rounded. Plan of care reviewed. spoke with patient son on the phone. Patient had light breakfast. Ivf per orders & lasix per orders. Continue with fluid restriction. Encouraged activity. Vss. Will monitor.
--- NOTE | 2021-05-14 11:21 | NUR ---
services inquired about patient DC'ing on this day. SW contacted patient's nurse to confirm if patient would be discharging on this day. Patient's nurse provided patient would not discharge on this day due to sodium being too low. BROWN contacted Flor at [phone] to update her with information. BROWN will continue to follow.
[2021-05-14 11:25] VITALS: BP 101/71; PULSE 76; TEMP 97.5
--- NOTE | 2021-05-14 14:16 | NUR ---
Patient resting in bed. Son at bedside. His son brought in a sandwich for patient for lunch. Assisted patient with shower. Patient shaved at the sink & brushed his teeth independently. Patient exhausted after hygiene. He is now resting. Denies the need for pain medication.
[2021-05-14 16:00] VITALS: BP 96/67; PULSE 77; TEMP 97.6
--- NOTE | 2021-05-14 18:10 | NUR ---
Patient resting in bed had an episode of emesis. Zofran resolved. He also used bedside commode & had a BM & voided. He is refusing dinner. Will report off to night nurse
--- NOTE | 2021-05-14 19:03 | NUR ---
Patient resting in bed. Son at bedside. He brought patient in dinner. Bedside report to Kymberly KEENE.
[2021-05-14 19:55] VITALS: BP 90/61; PULSE 79; TEMP 97.6
--- NOTE | 2021-05-14 20:00 | NUR ---
Report received, assumed care for shift supervisor rn. Assessment complete. A&Ox3. Denies pain/nausea. Short of breath with activity. VS stable. States he had a busy day today and feels drowsy. Plan of care discussed for this shift to include HS meds/pain control/calling for questions/concerns. Verbalizes understanding/denies needs. Call light in reach. Will monitor.
[2021-05-15 00:37] VITALS: BP 97/61; PULSE 80; TEMP 98.4
[2021-05-15 03:21] VITALS: BP 96/60; PULSE 81; TEMP 98.1
--- NOTE | 2021-05-15 04:05 | NUR ---
This nurse took over care for patient at approximately 2230. Has voiced no questions, needs, or concerns.
[2021-05-15 08:00] VITALS: BP 88/60; PULSE 73; TEMP 97.5
[2021-05-15 09:14] LABS: BASO % 0.2 % (0.0-2.0); EOS # 0.1 (0.0-0.7); EOS % 0.7 % (0-4.0); GRAN # 7.9 (1.4-6.5); GRAN % 79.5 % (42.2-75.2); LYMPH # 1.2 (1.2-3.4); LYMPH % 11.6 % (20.0-51.0); MEAN CELL VOLUME 78 fl (80.0-100.0); MEAN CORPUSCULAR HGB CONC 30 g/dl (33.0-37.0); MEAN PLATELET VOLUME 10.3 fl (7.4-10.4); MONO # 0.8 (0.1-0.6); MONO % 7.5 % (1.7-9.3); PLATELET COUNT 473 K/mm3 (130-400); RED BLOOD COUNT 3.22 M/mm3 (4.20-5.60); REDCELL DISTRIBUTION WIDTH-CV 15.7 % (11.5-14.5)
--- NOTE | 2021-05-15 09:14 | NUR ---
Patient sitting up in bed. Denies pain. Tolerated breakfast, but does now report nausea. Zofran PRN. Prior chest tube site. sutures intact. Vss on room air.
[2021-05-15 09:20] LABS: HEMATOCRIT 25.2 % (42.0-52.0); HEMOGLOBIN 7.6 g/dl (13.5-18.0); MEAN CORPUSCULAR HEMOGLOBIN 24 pg (27.0-31.0)
[2021-05-15 09:29] LABS: CALCIUM 7.3 mg/dL (8.4-10.2); CREATININE, serum 1.18 (0.66-1.25); POTASSIUM 3.2 mmol/L (3.4-5.0)
[2021-05-15 09:51] VITALS: BP 93/59; PULSE 75
[2021-05-15 11:26] VITALS: BP 90/58; PULSE 73; TEMP 97.7
--- NOTE | 2021-05-15 12:00 | NUR ---
Patient ready for discharge. Patient son here to take him home. We reviewed all discharge instructions. Hyponatremia reviewed with follow up labs & fluid restrictions. Patient ready to eat watermelon when he gets home, I informed patient that he is on fluid restrictions and watermelon is full of water. He is understanding. Patient aware of all the follow up appt he needs to make tmrw, son assist with cares. social work assisted with home health set up, Medication list reviewed with last dose taken. signs and symoptoms of when to call doctor reviewed. Patient wheeled out with all belognging, son taking him home.
--- NOTE | 2021-05-16 15:19 | NUR ---
[employer] workers spoke with [facility] and confirmed that they received orders and patient was discharged on 05/15/2021.
== END 2021-05-15 14:10 | disposition home health service (06) | DRG 163 ==
LOC: SURG 05-04 11:00 → INPTSU 05-04 11:00 → SURG 05-04 14:15
PROVIDERS: Internal Medicine; Physician Assistant; Student in an Organized Health Care Education/Training Program; ADMIT Surgery
PROC: 0BBN4ZX Excision of Right Pleura, Percutaneous Endoscopic Approach, Diagnostic (ICD-10-PCS; 2021-05-04)
PROC: 0W9940Z Drainage of Right Pleural Cavity with Drainage Device, Percutaneous Endoscopic Approach (ICD-10-PCS; 2021-05-04)
PROC: 0B5N4ZZ Destruction of Right Pleura, Percutaneous Endoscopic Approach (ICD-10-PCS; principal; 2021-05-04 14:15)
PROC: 0DB38ZX Excision of Lower Esophagus, Via Natural or Artificial Opening Endoscopic, Diagnostic (ICD-10-PCS; 2021-05-13)
PROC: 0DJD8ZZ Inspection of Lower Intestinal Tract, Via Natural or Artificial Opening Endoscopic (ICD-10-PCS; 2021-05-13)
DX: C78.2 Secondary malignant neoplasm of pleura (principal); E43 Unspecified severe protein-calorie malnutrition; J96.01 Acute respiratory failure with hypoxia; J90 Pleural effusion, not elsewhere classified; R18.8 Other ascites; Z68.1 Body mass index [BMI] 19.9 or less, adult; E22.2 Syndrome of inappropriate secretion of antidiuretic hormone; C80.1 Malignant (primary) neoplasm, unspecified; K74.60 Unspecified cirrhosis of liver; Z66 Do not resuscitate; Z20.822 Contact with and (suspected) exposure to COVID-19; J44.9 Chronic obstructive pulmonary disease, unspecified; I72.4 Aneurysm of artery of lower extremity; N18.9 Chronic kidney disease, unspecified; I12.9 Hypertensive chronic kidney disease with stage 1 through stage 4 chronic kidney disease, or unspecified chronic kidney disease; K22.70 Barrett's esophagus without dysplasia; K44.9 Diaphragmatic hernia without obstruction or gangrene; N40.0 Benign prostatic hyperplasia without lower urinary tract symptoms; D50.9 Iron deficiency anemia, unspecified; D63.1 Anemia in chronic kidney disease; D47.3 Essential (hemorrhagic) thrombocythemia; K59.00 Constipation, unspecified; D72.829 Elevated white blood cell count, unspecified; R11.2 Nausea with vomiting, unspecified; R53.81 Other malaise; Z79.82 Long term (current) use of aspirin; Z79.02 Long term (current) use of antithrombotics/antiplatelets; Z95.820 Peripheral vascular angioplasty status with implants and grafts; Z86.718 Personal history of other venous thrombosis and embolism; Z88.0 Allergy status to penicillin; Z87.891 Personal history of nicotine dependence
CPT/HCPCS: 99222; 99232-AI; 99233-AI; 99239; A7041; A9284; J0330; J0690; J1100; J1170; J1650; J1885; J1940; J2250; J2405; J2704; J2795; J3010; J7030; J7042; J7120; Q9967